=== PATIENT | male | born 1980 | race Caucasian/White ===

== ENCOUNTER 2019-07-21 17:57 | Emergency (ER) | payer OTHER, SELFPAY ==
[2019-07-21 17:59] VITALS: BP 137/82; PULSE 109; RESP 16; TEMP 37; O2SAT 98; BMI 32.5
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
[2019-07-21] MEDS: ketorolac 60 mg/2 mL INJ IM (19:08)
[2019-07-21] MEDS: tetanus-diphtheria tox (adult) 0.5 mL SDV IM (19:09)
[2019-07-21 20:28] VITALS: BP 148/92; PULSE 95; RESP 18; O2SAT 98
[2019-07-21 21:44] LABS: Hepatitis B Surface AB. 14.5 (0-8.5)
[2019-07-21 21:59] LABS: HIV 1 & 2 Antibody Non-Reactive (Non-Reactiv); HIV 1 & 2 Antigen Non-Reactive (Non-Reactiv)
[2019-07-21 22:27] LABS: Hepatitis C Virus Antibody Non-Reactive (Nonreactive)
== END 2019-07-21 20:31 | disposition home or self-care (01) ==
PROVIDERS: Emergency Provider Nurse Practitioner Family; Family Provider Nurse Practitioner Family
DX: S51.851A Open bite of right forearm, initial encounter (principal); W50.3XXA Accidental bite by another person, initial encounter; Y92.238 Other place in hospital as the place of occurrence of the external cause; Y99.0 Civilian activity done for income or pay; Z23 Encounter for immunization
CPT/HCPCS: 86706; 86803; 87340; 90471; 90472; 90714; 96372; 99281; J1885

== ENCOUNTER 2019-07-22 21:48 | Emergency (ER) | payer OTHER, SELFPAY ==
[2019-07-22 21:58] VITALS: PULSE 87; RESP 16; TEMP 36.4; O2SAT 98; BMI 34.4
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
[2019-07-22] MEDS: amoxicillin-clav 875-125 mg Tablet 1 TAB PO (22:07)
[2019-07-22 22:15] VITALS: PULSE 84; RESP 16; TEMP 36.4; O2SAT 98
== END 2019-07-22 22:16 | disposition home or self-care (01) ==
LOC: ER 23:36
PROVIDERS: Emergency Provider Emergency Medicine; Family Provider Nurse Practitioner Family
DX: S51.851A Open bite of right forearm, initial encounter (principal); W50.3XXA Accidental bite by another person, initial encounter; Y92.239 Unspecified place in hospital as the place of occurrence of the external cause; Y99.0 Civilian activity done for income or pay
CPT/HCPCS: 99281

== ENCOUNTER → 2020-01-17 11:21 | Outpatient (BNVA) | payer OTHER, SELFPAY | PROVIDERS: Family Provider Nurse Practitioner Family; Visit Provider Orthopaedic Surgery | DX: R52 Pain, unspecified (principal) | CPT/HCPCS: 73030 ==

== ENCOUNTER 2020-01-17 14:21 | Outpatient (CLI) | payer OTHER, SELFPAY ==
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
== END 2020-01-17 14:22 | disposition home or self-care (01) ==
LOC: RADWPI 14:24
PROVIDERS: Family Provider Family Medicine; PCP Family Medicine; Visit Provider Orthopaedic Surgery
DX: S46.211A Strain of muscle, fascia and tendon of other parts of biceps, right arm, initial encounter (principal); X58.XXXA Exposure to other specified factors, initial encounter
CPT/HCPCS: 73221

== ENCOUNTER 2020-02-24 07:09 | Outpatient (RCR) | payer OTHER, SELFPAY | END 2020-03-13 23:59 | disposition home or self-care (01) | LOC: SPT 07:09 | PROVIDERS: PCP Family Medicine; Referring Provider Orthopaedic Surgery; Visit Provider Orthopaedic Surgery | DX: M25.511 Pain in right shoulder (principal) | CPT/HCPCS: 97110; 97162; G0283 ==

== ENCOUNTER 2020-03-10 16:31 | Inpatient (IN) | payer OTHER, SELFPAY ==
[2020-03-10] VITALS (10 sets, daily range): BP systolic 123–145; BP diastolic 68–97; PULSE 73–122; RESP 15–29; TEMP 36.6–37.1; O2SAT 93–98; BMI 35.2
--- NOTE | 2020-03-10 16:40 | XRR_ITS ---
PROCEDURE INFORMATION: Exam: XR Chest, 1 View Exam date and time: 03/10/2020 5:14 PM Age: 39 years old Clinical indication: Shortness of breath; Additional info: Dyspnea/cough TECHNIQUE: Imaging protocol: XR of the chest Views: 1 view. COMPARISON: No relevant prior studies available. FINDINGS: Lungs: Unremarkable. No consolidation. Pleural space: Unremarkable. No pleural effusion. No pneumothorax. Heart/Mediastinum: Unremarkable. No cardiomegaly. Bones/joints: Unremarkable. XR/XR chest 1V portable [id number] IMPRESSION: No acute findings.
--- NOTE | 2020-03-10 16:42 | ED_ITS ---
Documented by User: Tyler Young DO 03/11/20 14:07 HPI - URI/Sore Throat General: Chief Complaint: Nausea/Vomiting/Diarrhea Stated Complaint: covid symtpoms Time Seen by Provider: 03/10/20 16:34 History of Present Illness: HPI Narrative: 39-year-old male presents emergency room via private vehicle complaining of shortness of breath extreme fatigue. He is tachycardic although his oxygen sats are mid 90s and above. He is fairly certain he was exposed to COVID. His daughter was exposed and tested positive in January. She was reexposed recently but she still within the top 3 months time window where it is thought that reinfection is not likely as the CDC is not recommend recommend retesting. Patient complains of feeling excessively short of breath rapid heart rate and feeling flushed and hot at times he is not had a ny anosmia been very nauseous but not had any diarrhea. He does feel very congestion he has a mildly productive cough. MD elicited complaint: cough, rhinorrhea and nasal congestion Onset (ago): day(s) (2) Consistency: constant and progressively worsening Severity: severe Description of mucous: clear Able to tolerate fluids by mouth: Yes Exacerbating factors: other (Exertion) Relieving factors: rest Associated symptoms: Reports chills, congestion, cough, fever(s), myalgias, nasal congestion, nausea, rhinorrhea, short of breath, stiffness and sore throat; Deny abdominal pain, chest pain, rash or vomiting Treatments prior to arrival: none Review of Systems Const: Reports: fever(s) and chills ENMT: Reports: nasal congestion Card: Denies: chest pain Resp: Denies: dyspnea, productive cough or non-productive cough GI: Reports: nausea; Denies: abdominal pain or vomiting : Denies: flank pain, dysuria, urinary frequency or urinary urgency Skin/Breast: Denies: rash or pruritus PFS ED PFSH: Medical History (Updated 03/11/20 @ 13:54 by Julián Mitchell MD) Contusion, arm, upper No pertinent past medical history Surgical History (Updated 03/11/20 @ 00:00 by Jammie Cortez MD) History of appendectomy Hx of cholecystectomy Family History (Updated 03/11/20 @ 00:00 by Jammie Cortez MD) Grandmother No problems noted. Mother Cancer Leukemia, in remission Social History (Updated 03/11/20 @ 00:01 by Jammie Cortez MD) Smoking and tobacco status: never smoked Alcohol intake: never Substance/Drug Use: never Lives independently: Yes Household members: spouse Housing: House Physical Exam Const: COMMON NORMALS: no acute distress GENERAL APPEARANCE: cooperative and comfortable ORIENTATION/CONSCIOUSNESS: Yes awake, Yes oriented to person, Yes oriented to place and Yes oriented to time HENMT: COMMON NORMALS: normocephalic, atraumatic and hearing grossly normal bilaterally HEAD & SCALP: normocephalic and atraumatic Eye: COMMON NORMALS: Equal, round and reactive pupils present, EOMs intact bilaterally, conjunctivae normal and no scleral icterus CONJUNCTIVA: Yes con junctivae normal PUPIL: Yes Equal, round and reactive pupils present Neck/C-Spine: COMMON NORMALS: no JVD Resp: COMMON NORMALS: normal respiratory effort, No retractions, No use of accessory muscles and clear to auscultation bilaterally AUSCULTATION: clear to auscultation bilaterally Cardio: COMMON NORMALS: no JVD, regular rate, regular rhythm and No murmurs present (Cardio) RATE: regular rate RHYTHM: regular rhythm GI: COMMON NORMALS: Soft to palpation and No hepatosplenomegaly present AUSCULTATION: Yes normoactive bowel sounds PALPATION: Yes Soft to palpation, No Tenderness to palpation present (GI), No Guarding due to palpation present (GI) and Yes No hepatosplenomegaly present Extremity: COMMON NORMALS: normal to inspection, capillary refill normal, no clubbing, cyanosis or edema, no calf tenderness and no pedal edema Neuro: SENSORIUM/ORIENTATION: Yes oriented to person, Yes oriented to place and Yes oriented to time Skin: COMMON NORMALS: no rashes or lesions noted GENERAL SKIN EXAM: no rashes or lesions noted Course Vital Signs: Vital signs: Vital Signs Temperature 99.0 F 03/11/20 12:24 Pulse Rate 94 03/11/20 12:24 Respiratory Rate 18 03/11/20 12:24 Blood Pressure 119/69 03/11/20 12:24 Pulse Oximetry 98 03/11/20 12:24 MDM - URI/Sore Throat MDM Narrative: Medical decision making narrative: Care turned over to Dr. Koch at change of shift see his notes for final diagnosis and disposition Lab Data: Labs: Lab Results 03/10/20 03/10/20 03/10/20 Range/Units 12:20 16:51 16:51 WBC 18.0 H (4.0-10.0) 10^3/ uL RBC 5.71 H (4.1-5.3) 10^6/u L Hgb 16.6 (11.7-16.6) g/dL Hct 48.6 (42.0-52.0) % MCV 85.1 (80-94) fL MCH 29.1 (28.0-34.0) pg MCHC 34.2 (30.0-36.0) g/dL RDW 11.9 L (12.1-15.1) % Plt Count 296 (130-400) 10^3/c mm MPV 10.4 (7.4-10.4) fL Neut % (Auto) 82.5 % Lymph % (Auto) 10.8 % Clayton % (Auto) 5.8 % Eos % (Auto) 0.4 % Baso % (Auto) 0.1 % Neut # (Auto) 14.89 H (1.8-7.7) 10^3/u L Lymph # (Auto) 1.9 (0.8-4.8) 10^3/u L Clayton # (Auto) 1.0 H (0.2-0.9) 10^3/u L Eos # (Auto) 0.1 (0.0-0.8) 10^3/u L Baso # (Auto) 0.0 (0.0-0.1) 10^3/u L Nucleated RBC % (a uto) 0 % Nucleated RBCs # 0.0 /100WBC Fibrinogen (174-498) mg/dL Sodium 138 (136-145) mmol/L Potassium 3.9 (3.5-5.1) mmol/L Chloride 100 (98-107) mmol/L Carbon Dioxide 22 (22-29) mmol/L Anion Gap 19.9 H (5-19) BUN 15 (6-20) mg/dL Creatinine 1.1 (0.7-1.2) mg/dL GFR Calculation 74.9 L (90-130) mL/min Glucose 127 H (65-115) mg/dL Calculated Osmolal ity 284 L (285-295) mOsm/k g Lactic Acid (0.5-2.2) mmol/L Calcium 9.6 (8.5-10.5) mg/dL Ferritin (30-400) ng/mL Total Bilirubin 1.1 (0.15-1.2) mg/dL AST 20 (0-40) U/L ALT 16 (0-41) U/L Alkaline Phosphata se 89 (40-130) IU/L Lactate Dehydrogen ase (135-225) U/L C-Reactive Protein (0.0-4.9) mg/L Total Protein 8.3 (6.6-8.7) g/dL Albumin 5.1 (3.5-5.2) g/dL Globulin 3.2 (1.3-4.6) g/dL Procalcitonin (0-0.5) ng/mL Urine Color (Yellow) Urine Appearance (CLEAR) Urine pH (5-7) Ur Specific Gravit y (1.005-1.030) Urine Protein (Negative) Urine Glucose (UA) (Normal) Urine Ketones (Negative) Urine Blood (Negative) Urine Nitrate (Negative) Urine Bilirubin (NEGATIVE) Urine Urobilinogen (Negative) mg/dL Ur Leukocyte Leanna ase (Negative) Urine RBC (0-2) /hpf Urine WBC (0-5) /hpf Ur Squamous Epith Cells (0-5) Amorphous Sediment Urine Bacteria (NONE) Urine Mucus SARS-CoV-2 Ag (Rap id) Negative (Negative) 03/10/20 03/10/20 03/10/20 Range/Units 16:51 16:51 16:51 WBC (4.0-10.0) 10^3/ uL RBC (4.1-5.3) 10^6/u L Hgb (11.7-16.6) g/dL Hct (42.0-52.0) % MCV (80-94) fL MCH (28.0-34.0) pg MCHC (30.0-36.0) g/dL RDW (12.1-15.1) % Plt Count (130-400) 10^3/c mm MPV (7.4-10.4) fL Neut % (Auto) % Lymph % (Auto) % Clayton % (Auto) % Eos % (Auto) % Baso % (Auto) % Neut # (Auto) (1.8-7.7) 10^3/u L Lymph # (Auto) (0.8-4.8) 10^3/u L Clayton # (Auto) (0.2-0.9) 10^3/u L Eos # (Auto) (0.0-0.8) 10^3/u L Baso # (Auto) (0.0-0.1) 10^3/u L Nucleated RBC % (a uto) % Nucleated RBCs # /100WBC Fibrinogen 359 (174-498) mg/dL Sodium (136-145) mmol/L Potassium (3.5-5.1) mmol/L Chloride (98-107) mmol/L Carbon Dioxide (22-29) mmol/L Anion Gap (5-19) BUN (6-20) mg/dL Creatinine (0.7-1.2) mg/dL GFR Calculation (90-130) mL/min Glucose (65-115) mg/dL Calculated Osmolal ity (285-295) mOsm/k g Lactic Acid 1.5 (0.5-2.2) mmol/L Calcium (8.5-10.5) mg/dL Ferritin 321 (30-400) ng/mL Total Bilirubin (0.15-1.2) mg/dL AST (0-40) U/L ALT (0-41) U/L Alkaline Phosphata se (40-130) IU/L Lactate Dehydrogen ase 166 (135-225) U/L C-Reactive Protein 5.6 H (0.0-4.9) mg/L Total Protein (6.6-8.7) g/dL Albumin (3.5-5.2) g/dL Globulin (1.3-4.6) g/dL Procalcitonin 0.05 (0-0.5) ng/mL Urine Color (Yellow) Urine Appearance (CLEAR) Urine pH (5-7) Ur Specific Gravit y (1.005-1.030) Urine Protein (Negative) Urine Glucose (UA) (Normal) Urine Ketones (Negative) Urine Blood (Negative) Urine Nitrate (Negative) Urine Bilirubin (NEGATIVE) Urine Urobilinogen (Negative) mg/dL Ur Leukocyte Leanna ase (Negative) Urine RBC (0-2) /hpf Urine WBC (0-5) /hpf Ur Squamous Epith Cells (0-5) Amorphous Sediment Urine Bacteria (NONE) Urine Mucus SARS-CoV-2 Ag (Rap id) (Negative) 03/10/20 Range/Units 20:38 WBC (4.0-10.0) 10^3/ uL RBC (4.1-5.3) 10^6/u L Hgb (11.7-16.6) g/dL Hct (42.0-52.0) % MCV (80-94) fL MCH (28.0-34.0) pg MCHC (30.0-36.0) g/dL RDW (12.1-15.1) % Plt Count (130-400) 10^3/c mm MPV (7.4-10.4) fL Neut % (Auto) % Lymph % (Auto) % Clayton % (Auto) % Eos % (Auto) % Baso % (Auto) % Neut # (Auto) (1.8-7.7) 10^3/u L Lymph # (Auto) (0.8-4.8) 10^3/u L Clayton # (Auto) (0.2-0.9) 10^3/u L Eos # (Auto) (0.0-0.8) 10^3/u L Baso # (Auto) (0.0-0.1) 10^3/u L Nucleated RBC % (a uto) % Nucleated RBCs # /100WBC Fibrinogen (174-498) mg/dL Sodium (136-145) mmol/L Potassium (3.5-5.1) mmol/L Chloride (98-107) mmol/L Carbon Dioxide (22-29) mmol/L Anion Gap (5-19) BUN (6-20) mg/dL Creatinine (0.7-1.2) mg/dL GFR Calculation (90-130) mL/min Glucose (65-115) mg/dL Calculated Osmolal ity (285-295) mOsm/k g Lactic Acid (0.5-2.2) mmol/L Calcium (8.5-10.5) mg/dL Ferritin (30-400) ng/mL Total Bilirubin (0.15-1.2) mg/dL AST (0-40) U/L ALT (0-41) U/L Alkaline Phosphata se (40-130) IU/L Lactate Dehydrogen ase (135-225) U/L C-Reactive Protein (0.0-4.9) mg/L Total Protein (6.6-8.7) g/dL Albumin (3.5-5.2) g/dL Globulin (1.3-4.6) g/dL Procalcitonin (0-0.5) ng/mL Urine Color Yellow (Yellow) Urine Appearance Clear (CLEAR) Urine pH 6.5 (5-7) Ur Specific Gravit y 1.015 (1.005-1.030) Urine Protein Trace (Negative) Urine Glucose (UA) Norm (Normal) Urine Ketones 3+ H (Negative) Urine Blood Neg (Negative) Urine Nitrate Negative (Negative) Urine Bilirubin Neg (NEGATIVE) Urine Urobilinogen 1 H (Negative) mg/dL Ur Leukocyte Leanna ase Negative (Negative) Urine RBC 0-4 H (0-2) /hpf Urine WBC 0-4 H (0-5) /hpf Ur Squamous Epith Cells 0-4 H (0-5) Amorphous Sediment Not Reportable Urine Bacteria Trace (NONE) Urine Mucus 3+ SARS-CoV-2 Ag (Rap id) (Negative) Discharge Plan Discharge Patient Disposition: Placed in Observation Admit Provider: Jammie Cortez Clinical Impression: Gastroenteritis, Dehydration Intractable vomiting Qualifiers: Vomiting type: unspecified Nausea presence: with nausea Qualified Code(s): R11.2 - Nausea with vomiting, unspecified Condition: Stable Discharge Date/Time: 03/11/20 00:01 Coding Level of Care Code ED Food Science Professor for g Fwd Exam Comprehensive Documented by User: Ned Koch DO 03/11/20 02:52 HPI - URI/Sore Throat General: Chief Complaint: Nausea/Vomiting/Diarrhea Stated Complaint: covid symtpoms Time Seen by Provider: 03/10/20 16:34 PFSH ED PFSH: Medical History (Updated 03/11/20 @ 13:54 by Julián Mitchell MD) Contusion, arm, upper No pertinent past medical history Surgical History (Updated 03/11/20 @ 00:00 by Jammie Cortez MD) History of appendectomy Hx of cholecystectomy Family History (Updated 03/11/20 @ 00:00 by Jammie Cortez MD) Grandmother No problems noted. Mother Cancer Leukemia, in remission Social History (Updated 03/11/20 @ 00:01 by Jammie Cortez MD) Smoking and tobacco status: never smoked Alcohol intake: never Substance/Drug Use: never Lives independently: Yes Household members: spouse Housing: House Course Consultations: Consultation #1: candido Vital Signs: Vital signs: Vital Signs Temperature 99.0 F 03/11/20 12:24 Pulse Rate 94 03/11/20 12:24 Respiratory Rate 18 03/11/20 12:24 Blood Pressure 119/69 03/11/20 12:24 Pulse Oximetry 98 03/11/20 12:24 MDM - URI/Sore Throat MDM Narrative: Medical decision making narrative: 39-year-old male presenting with some cough, shortness of breath, and vomiting. He states that he is vomited most of liquid he is taken in over the last 24 hours up. He is checked out to me by Dr. Young at shift change. He is tachycardic in the 130s on arrival. He is short of breath he has a headache, some generalized belly discomfort, and chest tightness. His white blood cell count 18 his electrolytes are normal. Hemoglobin 16.6. His chest x-ray is negative. CTA of the chest is also negative he is had 2 L of fluid, his heart rate is now in the 90s with a normal blood pressure. Given his extensive resuscitation here, to get him to this point, his continued symptoms, believe he should be observed. Hospitalist agrees. Lab Data: Labs: Lab Results 03/10/20 03/10/20 03/10/20 Range/Units 12:20 16:51 16:51 WBC 18.0 H (4.0-10.0) 10^3/ uL RBC 5.71 H (4.1-5.3) 10^6/u L Hgb 16.6 (11.7-16.6) g/dL Hct 48.6 (42.0-52.0) % MCV 85.1 (80-94) fL MCH 29.1 (28.0-34.0) pg MCHC 34.2 (30.0-36.0) g/dL RDW 11.9 L (12.1-15.1) % Plt Count 296 (130-400) 10^3/c mm MPV 10.4 (7.4-10.4) fL Neut % (Auto) 82.5 % Lymph % (Auto) 10.8 % Clayton % (Auto) 5.8 % Eos % (Auto) 0.4 % Baso % (Auto) 0.1 % Neut # (Auto) 14.89 H (1.8-7.7) 10^3/u L Lymph # (Auto) 1.9 (0.8-4.8) 10^3/u L Clayton # (Auto) 1.0 H (0.2-0.9) 10^3/u L Eos # (Auto) 0.1 (0.0-0.8) 10^3/u L Baso # (Auto) 0.0 (0.0-0.1) 10^3/u L Nucleated RBC % (a uto) 0 % Nucleated RBCs # 0.0 /100WBC Fibrinogen (174-498) mg/dL Sodium 138 (136-145) mmol/L Potassium 3.9 (3.5-5.1) mmol/L Chloride 100 (98-107) mmol/L Carbon Dioxide 22 (22-29) mmol/L Anion Gap 19.9 H (5-19) BUN 15 (6-20) mg/dL Creatinine 1.1 (0.7-1.2) mg/dL GFR Calculation 74.9 L (90-130) mL/min Glucose 127 H (65-115) mg/dL Calculated Osmolal ity 284 L (285-295) mOsm/k g Lactic Acid (0.5-2.2) mmol/L Calcium 9.6 (8.5-10.5) mg/dL Ferritin (30-400) ng/mL Total Bilirubin 1.1 (0.15-1.2) mg/dL AST 20 (0-40) U/L ALT 16 (0-41) U/L Alkaline Phosphata se 89 (40-130) IU/L Lactate Dehydrogen ase (135-225) U/L C-Reactive Protein (0.0-4.9) mg/L Total Protein 8.3 (6.6-8.7) g/dL Albumin 5.1 (3.5-5.2) g/dL Globulin 3.2 (1.3-4.6) g/dL Procalcitonin (0-0.5) ng/mL Urine Color (Yellow) Urine Appearance (CLEAR) Urine pH (5-7) Ur Specific Gravit y (1.005-1.030) Urine Protein (Negative) Urine Glucose (UA) (Normal) Urine Ketones (Negative) Urine Blood (Negative) Urine Nitrate (Negative) Urine Bilirubin (NEGATIVE) Urine Urobilinogen (Negative) mg/dL Ur Leukocyte Leanna ase (Negative) Urine RBC (0-2) /hpf Urine WBC (0-5) /hpf Ur Squamous Epith Cells (0-5) Amorphous Sediment Urine Bacteria (NONE) Urine Mucus SARS-CoV-2 Ag (Rap id) Negative (Negative) 03/10/20 03/10/20 03/10/20 Range/Units 16:51 16:51 16:51 WBC (4.0-10.0) 10^3/ uL RBC (4.1-5.3) 10^6/u L Hgb (11.7-16.6) g/dL Hct (42.0-52.0) % MCV (80-94) fL MCH (28.0-34.0) pg MCHC (30.0-36.0) g/dL RDW (12.1-15.1) % Plt Count (130-400) 10^3/c mm MPV (7.4-10.4) fL Neut % (Auto) % Lymph % (Auto) % Clayton % (Auto) % Eos % (Auto) % Baso % (Auto) % Neut # (Auto) (1.8-7.7) 10^3/u L Lymph # (Auto) (0.8-4.8) 10^3/u L Clayton # (Auto) (0.2-0.9) 10^3/u L Eos # (Auto) (0.0-0.8) 10^3/u L Baso # (Auto) (0.0-0.1) 10^3/u L Nucleated RBC % (a uto) % Nucleated RBCs # /100WBC Fibrinogen 359 (174-498) mg/dL Sodium (136-145) mmol/L Potassium (3.5-5.1) mmol/L Chloride (98-107) mmol/L Carbon Dioxide (22-29) mmol/L Anion Gap (5-19) BUN (6-20) mg/dL Creatinine (0.7-1.2) mg/dL GFR Calculation (90-130) mL/min Glucose (65-115) mg/dL Calculated Osmolal ity (285-295) mOsm/k g Lactic Acid 1.5 (0.5-2.2) mmol/L Calcium (8.5-10.5) mg/dL Ferritin 321 (30-400) ng/mL Total Bilirubin (0.15-1.2) mg/dL AST (0-40) U/L ALT (0-41) U/L Alkaline Phosphata se (40-130) IU/L Lactate Dehydrogen ase 166 (135-225) U/L C-Reactive Protein 5.6 H (0.0-4.9) mg/L Total Protein (6.6-8.7) g/dL Albumin (3.5-5.2) g/dL Globulin (1.3-4.6) g/dL Procalcitonin 0.05 (0-0.5) ng/mL Urine Color (Yellow) Urine Appearance (CLEAR) Urine pH (5-7) Ur Specific Gravit y (1.005-1.030) Urine Protein (Negative) Urine Glucose (UA) (Normal) Urine Ketones (Negative) Urine Blood (Negative) Urine Nitrate (Negative) Urine Bilirubin (NEGATIVE) Urine Urobilinogen (Negative) mg/dL Ur Leukocyte Leanna ase (Negative) Urine RBC (0-2) /hpf Urine WBC (0-5) /hpf Ur Squamous Epith Cells (0-5) Amorphous Sediment Urine Bacteria (NONE) Urine Mucus SARS-CoV-2 Ag (Rap id) (Negative) 03/10/20 Range/Units 20:38 WBC (4.0-10.0) 10^3/ uL RBC (4.1-5.3) 10^6/u L Hgb (11.7-16.6) g/dL Hct (42.0-52.0) % MCV (80-94) fL MCH (28.0-34.0) pg MCHC (30.0-36.0) g/dL RDW (12.1-15.1) % Plt Count (130-400) 10^3/c mm MPV (7.4-10.4) fL Neut % (Auto) % Lymph % (Auto) % Clayton % (Auto) % Eos % (Auto) % Baso % (Auto) % Neut # (Auto) (1.8-7.7) 10^3/u L Lymph # (Auto) (0.8-4.8) 10^3/u L Clayton # (Auto) (0.2-0.9) 10^3/u L Eos # (Auto) (0.0-0.8) 10^3/u L Baso # (Auto) (0.0-0.1) 10^3/u L Nucleated RBC % (a uto) % Nucleated RBCs # /100WBC Fibrinogen (174-498) mg/dL Sodium (136-145) mmol/L Potassium (3.5-5.1) mmol/L Chloride (98-107) mmol/L Carbon Dioxide (22-29) mmol/L Anion Gap (5-19) BUN (6-20) mg/dL Creatinine (0.7-1.2) mg/dL GFR Calculation (90-130) mL/min Glucose (65-115) mg/dL Calculated Osmolal ity (285-295) mOsm/k g Lactic Acid (0.5-2.2) mmol/L Calcium (8.5-10.5) mg/dL Ferritin (30-400) ng/mL Total Bilirubin (0.15-1.2) mg/dL AST (0-40) U/L ALT (0-41) U/L Alkaline Phosphata se (40-130) IU/L Lactate Dehydrogen ase (135-225) U/L C-Reactive Protein (0.0-4.9) mg/L Total Protein (6.6-8.7) g/dL Albumin (3.5-5.2) g/dL Globulin (1.3-4.6) g/dL Procalcitonin (0-0.5) ng/mL Urine Color Yellow (Yellow) Urine Appearance Clear (CLEAR) Urine pH 6.5 (5-7) Ur Specific Gravit y 1.015 (1.005-1.030) Urine Protein Trace (Negative) Urine Glucose (UA) Norm (Normal) Urine Ketones 3+ H (Negative) Urine Blood Neg (Negative) Urine Nitrate Negative (Negative) Urine Bilirubin Neg (NEGATIVE) Urine Urobilinogen 1 H (Negative) mg/dL Ur Leukocyte Leanna ase Negative (Negative) Urine RBC 0-4 H (0-2) /hpf Urine WBC 0-4 H (0-5) /hpf Ur Squamous Epith Cells 0-4 H (0-5) Amorphous Sediment Not Reportable Urine Bacteria Trace (NONE) Urine Mucus 3+ SARS-CoV-2 Ag (Rap id) (Negative) Discharge Plan Discharge Patient Disposition: Placed in Observation Admit Provider: Jammie Cortez Clinical Impression: Gastroenteritis, Dehydration Intractable vomiting Qualifiers: Vomiting type: unspecified Nausea presence: with nausea Qualified Code(s): R11.2 - Nausea with vomiting, unspecified Condition: Stable Discharge Date/Time: 03/11/20 00:01 Coding Level of Care Code ED Food Science Professor for [facility] Fwd Exam Comprehensive
[2020-03-10 17:00] LABS: Basophils % 0.1 %; Eosinophils # 0.1 10^3/uL (0.0-0.8); Eosinophils % 0.4 %; Hematocrit 48.6 % (42.0-52.0); Hemoglobin 16.6 g/dL (11.7-16.6); Lymphocytes # 1.9 10^3/uL (0.8-4.8); Lymphocytes % 10.8 %; Mean Corpuscular HGB Conc 34.2 g/dL (30.0-36.0); Mean Corpuscular Hemoglobin 29.1 pg (28.0-34.0); Mean Corpuscular Volume 85.1 fL (80-94); Mean Platelet Volume 10.4 fL (7.4-10.4); Monocytes % 5.8 %; Neutrophils # 14.89 10^3/uL (1.8-7.7); Neutrophils % 82.5 %; Nucleated Red Blood Cells % 0 %; Platelet Count 296 10^3/cmm (130-400); Red Blood Count 5.71 10^6/uL (4.1-5.3); Red Cell Distribution Width 11.9 % (12.1-15.1)
[2020-03-10 17:17] LABS: Alanine Aminotransferase 16 U/L (0-41); Albumin Level 5.1 g/dL (3.5-5.2); Alkaline Phosphatase 89 IU/L (40-130); Anion Gap 19.9 (5-19); Aspartate Amino Transferase 20 U/L (0-40); Blood Urea Nitrogen 15 mg/dL (6-20); Calcium 9.6 mg/dL (8.5-10.5); Carbon Dioxide 22 mmol/L (22-29); Chloride 100 mmol/L (98-107); Globulin 3.2 g/dL (1.3-4.6); Glomerular Filtration Rate 74.9 mL/min (90-130); Glucose 127 mg/dL (65-115); Osmolality Calculated 284 mOsm/kg (285-295); Potassium 3.9 mmol/L (3.5-5.1); Sodium 138 mmol/L (136-145); Total Bilirubin 1.1 mg/dL (0.15-1.2); Total Protein 8.3 g/dL (6.6-8.7)
[2020-03-10 17:41] LABS: Lactic Sepsis W/Reflex 1.5 mmol/L (0.5-2.2); Procalcitonin 0.05 ng/mL (0-0.5)
[2020-03-10 17:42] LABS: SARS Covid-2 Antigen Negative (Negative)
--- NOTE | 2020-03-10 17:46 | CTR_ITS ---
PROCEDURE INFORMATION: Exam: CT Angiography Chest With Contrast Exam date and time: 03/10/2020 6:26 PM Age: 39 years old Clinical indication: Shortness of breath; Patient HX: C/O SOB and fatigue; Additional info: Dyspnea TECHNIQUE: Imaging protocol: Computed tomographic angiography of the chest with intravenous contrast. 3D rendering (Not supervised by radiologist): MIP and/or 3D reconstructed images were created by the technologist. Radiation optimization: All CT scans at this facility use at least one of these dose optimization techniques: automated exposure control; mA and/or kV adjustment per patient size (includes targeted exams where dose is matched to clinical indication); or iterative reconstruction. Contrast material: OMNI 350; Contrast volume: 95 ml; Contrast route: INTRAVENOUS (IV); COMPARISON: CR XR chest 1V portable [id number] 03/10/2020 5:01 PM RADIATION DOSE METRICS: Total DLP (mGy-cm): 597.74 FINDINGS: Pulmonary arteries: Normal. No pulmonary emboli. Aorta: Unremarkable. No aortic aneurysm. No aortic dissection. Lungs: Unremarkable. No consolidation. No masses. Pleural space: Unremarkable. No pneumothorax. No pleural effusion. Heart: Unremarkable. No cardiomegaly. No pericardial effusion. Lymph nodes: Unremarkable. No enlarged lymph nodes. Gallbladder and bile ducts: The gallbladder is not visualized. The bile ducts are normal. Bones/joints: Unremarkable. No acute fracture. Soft tissues: Unremarkable. CT/CT angio chest PE protcl [id number] IMPRESSION: 1. No evidence for pulmonary embolus or acute abnormality. Radiation Dose CTDIVOL = (mGy): DLP = 597.74 (mGy-cm)
[2020-03-10 17:52] LABS: C Reactive Protein 5.6 mg/L (0.0-4.9); Ferritin 321 ng/mL (30-400); Lactate Dehydrogenase 166 U/L (135-225)
[2020-03-10 17:53] LABS: Fibrinogen 359 mg/dL (174-498)
--- NOTE | 2020-03-10 18:46 | PC.NURSE ---
pt transported to CT by stretcher
[2020-03-10] MEDS: sodium chloride 0.9% 1,000 ML 999 ML IV ×2 (18:54→21:37)
[2020-03-10] MEDS: ondansetron 2 mg/ML SDV 2 mL 4 MG IVP (18:55)
[2020-03-10] MEDS: iohexol 350 mg/mL 100 mL Btl IV (18:55)
[2020-03-10] MEDS: fentaNYL 50 mcg/mL INJ 2mL 100 MCG IVP (18:55)
--- NOTE | 2020-03-10 19:11 | PC.NURSE ---
patient report received from [facility] and care transferred to [facility]
[2020-03-10] MEDS: metoprolol tartrate 1 mg/1 mL SDV 5 mL 5 MG IV (19:52)
[2020-03-10] MEDS: dexamethasone 4 mg/mL INJ 8 MG IVP (19:52)
[2020-03-10 21:19] LABS: Bilirubin Urine Neg (NEGATIVE); Blood Urine Neg (Negative); Glucose Urine UA Norm (Normal); Ketones Urine 3+ (Negative); Leukocyte Esterase Urine Negative (Negative); Nitrate Urine Negative (Negative); Protein Urine Trace (Negative); Specific Gravity, Urine 1.015 (1.005-1.030); Urine Appearance Clear (CLEAR); Urine Color Yellow (Yellow); Urobilinogen Urine 1 mg/dL (Negative); pH Urine 6.5 (5-7)
[2020-03-10 21:20] LABS: Add Urine Culture? No; Bacteria Urine TRACE; Mucus Urine 3+; RBC Urine 0-4 /hpf (0-2); Squamous Epithelial Cell Urine 0-4 (0-5); WBC Urine 0-4 /hpf (0-5)
[2020-03-10] MEDS: fentaNYL 50 mcg/mL INJ 2mL IVP (21:35)
[2020-03-10] MEDS: ketorolac 30 mg/mL INJ IVP (21:36)
--- NOTE | 2020-03-10 22:57 | PM.HP ---
Providers/Chief Complaint Primary Care Provider: Srinath Castellon MD Chief Complaint: covid symtpoms History of Present Illness Abebe Simeon is a 39 year old male who does not carry significant past medical history, has history of laparotomy, appendectomy, cholecystectomy came in with chief complaint of intractable nausea and vomiting. Abebe works at [employer], he is stating that his symptoms started 48 hours ago, he had pizza with his family, next day he started experiencing intractable nausea and vomiting without any episodes of diarrhea, fever, blood in stool, hemoptysis. He has had more than 15 episodes of vomiting. He was worried about faith COVID-19 because of exposure to her daughter who is positive. Is denying chest pain, orthopnea, PND, he is a non-smoker, nonalcoholic. His last bowel movement was yesterday. Is denying excruciating abdominal pain. He is denying recent camping, traveling or similar symptoms in his family members. Diagnosis in the ER revealed dehydration, leukocytosis, for intractable nausea and vomiting hospital service was requested to resuscitate him with fluid overnight along antiemetics. Considering history of laparotomy I have requested CT abdomen to rule out obstruction. Currently his heart rate is ranging between 99-100, clinically he is fluid overloaded, no signs of peritonitis or severe abdominal pain COVID antigen negative Review of Systems Const: Reports: body aches and fatigue; Denies: fever(s), chills or change in appetite Eyes: Denies: change in vision ENMT: Denies: throat pain Card: Reports: palpitations; Denies: chest pain, dyspnea on exertion or orthopnea Resp: Denies: dyspnea GI: Reports: abdominal pain, nausea, vomiting and heartburn : Denies: flank pain Musc: Denies: neck pain Skin/Breast: Denies: rash Neuro: Denies: headache(s) Psych: Denies: anxiety or depression Endo: Denies: polyuria Parminder/Lymph: Denies: easy bruising All/Imm: Denies: urticaria Medications/Allergies Home Medications Medication Instructions Recorded Confirmed Last Taken Type No Known Home Medications 01/17/20 03/10/20 Unknown History Allergies Allergy/AdvReac Type Severity Reaction Status Date / Time No Known Allergies Allergy Verified 02/15/20 14:47 PFSH Acute PFSH: Medical History (Updated 03/11/20 @ 00:00 by Jammie Cortez MD) Contusion, arm, upper No pertinent past medical history Surgical History (Updated 03/11/20 @ 00:00 by Jammie Cortez MD) History of appendectomy Hx of cholecystectomy Family History (Updated 03/11/20 @ 00:00 by Jammie Cortez MD) Grandmother No problems noted. Mother Cancer Leukemia, in remission Social History (Updated 03/11/20 @ 00:01 by Jammie Cortez MD) Smoking and tobacco status: never smoked Alcohol intake: never Substance/Drug Use: never Lives independently: Yes Household members: spouse Housing: House Vitals/I&O/Wt Last Vital Signs Temp 98.8 F 03/10/20 20:47 Pulse 96 03/10/20 22:31 Resp 27 H 03/10/20 22:31 BP 125/76 03/10/20 22:31 Pulse Ox 94 03/10/20 22:31 03/10/20 03/10/20 03/10/20 06:59 14:59 22:59 Intake Total 1000 / 1000 Balance 1000 / 1000 Weight last 48 hrs Weight 102.058 kg Physical Exam Narrative: EXAM NARRATIVE: Young male currently laying in distress in right lateral position Saturating well, tachycardic Clinically dehydrated Hoarseness of voice, Abdomen soft, distended, bowel sound present, visceral obesity, No signs of peritonitis, bowel sound present in all quadrants S1, S2, sinus tachycardia no signs of heart failure Bilateral breath sounds without adventitious sounds Neurologically nonfocal exam, EOMI, PERRLA Lower extremities without any signs of ischemia gangrene ulcer Appropriate mood and affect Dry buccal mucous membrane Data : 03/10/20 16:51 03/10/20 16:51 Micro: Microbiology 03/10/20 16:51 Blood Culture - Preliminary Blood SPECIMEN COLLECTED 03/10/20 16:51 Blood Culture - Preliminary Blood SPECIMEN COLLECTED A&P Assessment and plan (1) Intractable vomiting: Status: Acute (2) Dehydration: Status: Acute (3) Gastroenteritis: Status: Acute Additional A&P Information InTractable nausea vomiting secondary to gastroenteritis Symptoms started after eating pizza 48 hours ago Patient is afebrile, no bleeding per rectum, mildly high CRP, procalcitonin unremarkable, CTA negative for PE No need of antibiotics, hydrate with IV fluids Zofran antiemetic regimen Clinically dehydrated, rule out SBO, CT abdomen pelvis with IV contrast COVID antigen negative Leukocytosis secondary to stress-induced response, no signs of sepsis Anticipating improvement with resuscitation We will follow-up with CT abdomen No active source of infection identified Full code DVT prophylaxis: Lovenox GI prophylaxis, Protonix IV Advance diet as tolerated Attestations Medical Necessity Statement*: Anticipating discharge in less than 48 hours currently need IV fluids and antiemetics for intractable nausea vomiting Time Spent in Patient Care: (>than 50% of time spent in counselling and/or direct pt care on unit). 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
--- NOTE | 2020-03-10 23:49 | CTR_ITS ---
PROCEDURE INFORMATION: Exam: CT Abdomen And Pelvis With Contrast Exam date and time: 03/10/2020 11:56 PM Age: 39 years old Clinical indication: Vomiting; Additional info: Intractable vomiting HX of laprotomy TECHNIQUE: Imaging protocol: Computed tomography of the abdomen and pelvis with intravenous contrast. Radiation optimization: All CT scans at this facility use at least one of these dose optimization techniques: automated exposure control; mA and/or kV adjustment per patient size (includes targeted exams where dose is matched to clinical indication); or iterative reconstruction. Contrast material: OMNI 300; Contrast volume: 95 ml; Contrast route: INTRAVENOUS (IV); COMPARISON: No relevant prior studies available. RADIATION DOSE METRICS: Total DLP (mGy-cm): 1293.42 FINDINGS: Lungs: There is mild basilar ground-glass opacity compatible with pneumonitis versus atelectasis. Mediastinal space: A small hiatal hernia is present. Liver: There is a diffuse decrease in hepatic parenchymal density, consistent with fatty infiltration. Gallbladder and bile ducts: There has been a cholecystectomy. There is no common bile duct dilation. Pancreas: Normal. No ductal dilation. Spleen: Normal. No splenomegaly. Adrenals: Normal. No mass. Kidneys and ureters: There is no evidence of hydronephrosis. There is no evidence of renal calcifications. Stomach and bowel: There is no evidence of intestinal perforation or obstruction. The wall of the descending colon is thickened but collapsed. This appearance may reflect lack of distention however mild colitis cannot be excluded. There is diffuse small bowel wall thickening, consistent with infectious, ischemic, or inflammatory enteritis. Appendix: A normal appendix is identified. Intraperitoneal space: Unremarkable. No free air. No significant fluid collection. Vasculature: Unremarkable.No abdominal aortic aneurysm. Lymph nodes: Unremarkable.No enlarged lymph nodes. Bladder: Unremarkable as visualized. Reproductive: Unremarkable as visualized. Bones/joints: Unremarkable. No acute fracture. Soft tissues: There is a fat-containing umbilical hernia. CT/CT abdomen pelvis w con* [id number] IMPRESSION: 1. The wall of the descending colon is thickened but collapsed. This appearance may reflect lack of distention however mild colitis cannot be excluded. 2. There is diffuse small bowel wall thickening, consistent with infectious, ischemic, or inflammatory enteritis. Radiation Dose CTDIVOL = (mGy): DLP = 1293.42 (mGy-cm)
[2020-03-11] VITALS (7 sets, daily range): BP systolic 93–157; BP diastolic 54–80; PULSE 83–100; RESP 16–20; TEMP 36.8–37.2; O2SAT 95–99
[2020-03-11] MEDS: iohexol 300 mg/mL 100 mL Btl IV ×2 (00:11→12:54)
[2020-03-11] MEDS: sodium chloride 0.9% 1,000 ML 100 ML IV ×3 (00:41→21:58)
[2020-03-11] MEDS: enoxaparin 40 mg/0.4 mL Syringe SUBCUT ×2 (00:41→23:48)
[2020-03-11 06:11] LABS: Basophils % 0.1 %; Eosinophils % 0.1 %; Hematocrit 43.3 % (42.0-52.0); Hemoglobin 14.5 g/dL (11.7-16.6); Lymphocytes # 1.3 10^3/uL (0.8-4.8); Lymphocytes % 9.8 %; Mean Corpuscular HGB Conc 33.5 g/dL (30.0-36.0); Mean Corpuscular Volume 89.5 fL (80-94); Mean Platelet Volume 10.5 fL (7.4-10.4); Monocytes # 0.5 10^3/uL (0.2-0.9); Monocytes % 3.9 %; Neutrophils # 11.29 10^3/uL (1.8-7.7); Neutrophils % 85.6 %; Nucleated Red Blood Cells % 0 %; Platelet Count 210 10^3/cmm (130-400); Red Blood Count 4.84 10^6/uL (4.1-5.3); Red Cell Distribution Width 11.9 % (12.1-15.1); White Blood Count 13.2 10^3/uL (4.0-10.0)
[2020-03-11 06:46] LABS: Anion Gap 11.4 (5-19); Blood Urea Nitrogen 15 mg/dL (6-20); Calcium 8.8 mg/dL (8.5-10.5); Carbon Dioxide 25 mmol/L (22-29); Chloride 105 mmol/L (98-107); Glomerular Filtration Rate 83.6 mL/min (90-130); Glucose 138 mg/dL (65-115); Osmolality Calculated 282 mOsm/kg (285-295); Potassium 4.4 mmol/L (3.5-5.1); Sodium 137 mmol/L (136-145)
[2020-03-11 09:24] LABS: Glucose Point of Care 106 mg/dL (70-110)
[2020-03-11] MEDS: pantoprazole 40 mg SDV IVP (09:37)
[2020-03-11] MEDS: ondansetron 2 mg/ML SDV 2 mL 4 MG IVP ×3 (09:38→21:58)
[2020-03-11] MEDS: morphine 4 mg/mL SDV 1 mL 2 MG IVP (09:39)
--- NOTE | 2020-03-11 10:24 | CTR_ITS ---
PROCEDURE INFORMATION: Exam: CT Neck With Contrast Exam date and time: 03/11/2020 12:45 PM Age: 39 years old Clinical indication: Throat pain; Additional info: Peritonislar abscess? TECHNIQUE: Imaging protocol: Computed tomography images of the neck with intravenous contrast. Radiation optimization: All CT scans at this facility use at least one of these dose optimization techniques: automated exposure control; mA and/or kV adjustment per patient size (includes targeted exams where dose is matched to clinical indication); or iterative reconstruction. Contrast material: OMNI 300; Contrast volume: 95 ml; Contrast route: INTRAVENOUS (IV); COMPARISON: CT Cervical Spine wo* [id number] 12/16/2017 8:53 PM RADIATION DOSE METRICS: Total DLP (mGy-cm): 724.27 FINDINGS: Nasopharynx: Unremarkable. Oropharynx: Unremarkable. No significant tonsillar enlargement. Hypopharynx: Unremarkable. Larynx: Unremarkable. Normal epiglottis. Retropharyngeal space: Unremarkable. Submandibular/Parotid glands: Normal. Glands are normal in size. Thyroid: Normal. No enlarged or calcified nodules. Lymph nodes: Unremarkable. No lymphadenopathy. Trachea: Visualized trachea is unremarkable. Lungs: Unremarkable as visualized. Bones/joints: Unremarkable. No acute fracture. Soft tissues: Unremarkable. No significant soft tissue swelling. CT/CT neck w con* [id number] IMPRESSION: No acute findings. Radiation Dose CTDIVOL = (mGy): DLP = 724.27 (mGy-cm)
--- NOTE | 2020-03-11 10:24 | CTR_ITS ---
PROCEDURE INFORMATION: Exam: CT Head Without Contrast Exam date and time: 03/11/2020 12:45 PM Age: 39 years old Clinical indication: Pain; Headache; Additional info: Headache, malaise TECHNIQUE: Imaging protocol: Computed tomography of the head without contrast. Radiation optimization: All CT scans at this facility use at least one of these dose optimization techniques: automated exposure control; mA and/or kV adjustment per patient size (includes targeted exams where dose is matched to clinical indication); or iterative reconstruction. COMPARISON: CT head wo con* [id number] 12/16/2017 8:50 PM RADIATION DOSE METRICS: Total DLP (mGy-cm): 751.12 FINDINGS: Brain: Normal. No hemorrhage. Unremarkable white matter. No mass effect. Ventricles: Normal. No ventriculomegaly. Bones/joints: Unremarkable. No acute fracture. Sinuses: Visualized sinuses are unremarkable. No fluid levels. Mastoid air cells: Visualized mastoid air cells are well aerated. Soft tissues: Unremarkable. CT/CT head wo con* [id number] IMPRESSION: No acute intracranial abnormality. Radiation Dose CTDIVOL = (mGy): DLP = 751.12 (mGy-cm)
[2020-03-11 10:45] LABS: Lactic Sepsis W/Reflex 1.1 mmol/L (0.5-2.2)
[2020-03-11 11:02] LABS: Monoscreen Negative (Negative)
[2020-03-11] MEDS: cefTRIAXone 1,000 MG in sodium chloride 0.9% (plus) 50 ML 100 MG IV (11:14)
[2020-03-11] MEDS: HYDROmorphone 1 mg/mL INJ 1 mL 0.5 MG IVP ×3 (11:14→22:00)
[2020-03-11 11:47] LABS: Erythrocyte Sedimentation Rate 5 mm/hr (0-10)
--- NOTE | 2020-03-11 13:52 | PM.PN ---
Subjective Subjective: Interval history: Was examined, he is complaining of a severe headache, with photophobia, has a history of migraine headaches, complaining of sore throat, generalized fatigue, malaise, nausea, diffuse abdominal pain Vitals/I&O/Wt Last Vital Signs Temp 99.0 F 03/11/20 12:24 Pulse 94 03/11/20 12:24 Resp 18 03/11/20 12:24 BP 119/69 03/11/20 12:24 Pulse Ox 98 03/11/20 12:24 03/10/20 03/11/20 03/11/20 22:59 06:59 14:59 Intake Total 1000 / 1000 1000 / 2000 1000 / 1000 Balance 1000 / 1000 1000 / 2000 1000 / 1000 Weight last 48 hrs Weight 102.058 kg Physical Exam Const: COMMON NORMALS: no acute distress and patient oriented x3 HENMT: COMMON NORMALS: normocephalic HEAD & SCALP: normocephalic Eye: COMMON NORMALS: Equal, round and reactive pupils present and EOMs intact bilaterally PUPIL: Yes Equal, round and reactive pupils present Neck/C-Spine: COMMON NORMALS: full ROM, no lymphadenopathy, no meningeal signs and no JVD Resp: COMMON NORMALS: normal respiratory effort, No retractions, No use of accessory muscles and clear to auscultation bilaterally AUSCULTATION: clear to auscultation bilaterally Cardio: COMMON NORMALS: no JVD, regular rate, regular rhythm, S1 normal heart sound present and S2 normal heart sound present RATE: regular rate RHYTHM: regular rhythm HEART SOUNDS: S1 normal heart sound present and S2 normal heart sound present GI: COMMON NORMALS: Normal to inspection, nondistended, normoactive bowel sounds present, non-tender, No hepatosplenomegaly present, no masses and no bruits PALPATION: Yes Tenderness to palpation present (GI) Details: LLQ, RLQ, LUQ and RUQ and Yes No hepatosplenomegaly present Extremity: COMMON NORMALS: capillary refill normal, no clubbing, cyanosis or edema, no calf tenderness and no pedal edema Neuro: COMMON NORMALS: patient oriented x3 MENINGEAL SIGNS: Yes no meningeal signs Psych: COMMON NORMALS: mental status grossly normal Data : 03/11/20 05:30 03/11/20 05:30 Micro: Microbiology 08/28/20 20:38 Gram Stain - Final Sputum - Expectorated Sputum 03/10/20 16:51 Blood Culture - Preliminary Blood SPECIMEN COLLECTED 03/10/20 16:51 Blood Culture - Preliminary Blood SPECIMEN COLLECTED A&P Assessment and plan (1) Intractable vomiting: -Continue IV hydration Status: Acute Qualifiers: Nausea presence: with nausea Vomiting type: unspecified Qualified Code(s): R11.2 - Nausea with vomiting, unspecified (2) Dehydration: -Continue IV hydration, monitor electrolytes Status: Acute (3) Gastroenteritis: -Continue IV hydration, Dilaudid for pain, Zofran for nausea -Inflammatory markers within normal limits -CT scan of the abdomen shows diffuse small bowel thickening, infectious versus inflammatory versus ischemic -Inflammatory markers within normal limits, lactic acid within normal limits -We will obtain stool studies, Status: Acute (4) Sore throat: -Given sore throat, I was not able to examine the back of the throat, voice sounds hoarse, difficulty opening the mouth, minimal trismus -Start Rocephin for strep throat, will do CT of the neck to rule out peritonsillar abscess Status: Acute (5) Headache: -Persistent headache, will evaluate with CT of the head rule out subarachnoid hemorrhage Status: Acute (6) Contusion, arm, upper: Status: Acute Qualifiers: Encounter type: initial encounter Laterality: right Qualified Code(s): S40.021A - Contusion of right upper arm, initial encounter Additional A&P Information InTractable nausea vomiting secondary to gastroenteritis Symptoms started after eating pizza 48 hours ago Patient is afebrile, no bleeding per rectum, mildly high CRP, procalcitonin unremarkable, CTA negative for PE No need of antibiotics, hydrate with IV fluids Zofran antiemetic regimen Clinically dehydrated, rule out SBO, CT abdomen pelvis with IV contrast COVID antigen negative Leukocytosis secondary to stress-induced response, no signs of sepsis Anticipating improvement with resuscitation Full code DVT prophylaxis: Lovenox GI prophylaxis, Protonix IV Advance diet as tolerated Attestations Medical Necessity Statement*: Patient requires hospitalization due to gastroenteritis, dehydration, strep throat, headache Coding Level of Care Code Acute [employer] for [facility] 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
[2020-03-11 18:18] LABS: Coronavirus Lab Test PTC Negative
[2020-03-12] VITALS (7 sets, daily range): BP systolic 92–133; BP diastolic 53–77; PULSE 75–85; RESP 12–20; TEMP 36.4–37.3; O2SAT 95–99
[2020-03-12 06:12] LABS: Basophils # 0.1 10^3/uL (0.0-0.1); Basophils % 0.4 %; Eosinophils # 0.1 10^3/uL (0.0-0.8); Eosinophils % 0.7 %; Hematocrit 40.7 % (42.0-52.0); Hemoglobin 13.4 g/dL (11.7-16.6); Lymphocytes # 3.3 10^3/uL (0.8-4.8); Mean Corpuscular HGB Conc 32.9 g/dL (30.0-36.0); Mean Corpuscular Hemoglobin 29.1 pg (28.0-34.0); Mean Corpuscular Volume 88.5 fL (80-94); Mean Platelet Volume 10.5 fL (7.4-10.4); Monocytes % 8.1 %; Neutrophils # 7.44 10^3/uL (1.8-7.7); Neutrophils % 62.4 %; Nucleated Red Blood Cells % 0 %; Platelet Count 175 10^3/cmm (130-400); Red Cell Distribution Width 11.9 % (12.1-15.1); White Blood Count 11.9 10^3/uL (4.0-10.0)
[2020-03-12 06:41] LABS: Alanine Aminotransferase 20 U/L (0-41); Albumin Level 3.8 g/dL (3.5-5.2); Alkaline Phosphatase 64 IU/L (40-130); Aspartate Amino Transferase 19 U/L (0-40); Blood Urea Nitrogen 15 mg/dL (6-20); C Reactive Protein 1.8 mg/L (0.0-4.9); Calcium 8.2 mg/dL (8.5-10.5); Carbon Dioxide 26 mmol/L (22-29); Chloride 106 mmol/L (98-107); Globulin 1.9 g/dL (1.3-4.6); Glomerular Filtration Rate 94.4 mL/min (90-130); Glucose 97 mg/dL (65-115); Osmolality Calculated 282 mOsm/kg (285-295); Phosphorus 2.5 mg/dL (2.5-4.5); Sodium 138 mmol/L (136-145); Total Bilirubin 0.7 mg/dL (0.15-1.2); Total Protein 5.7 g/dL (6.6-8.7)
[2020-03-12 06:52] LABS: Procalcitonin 0.05 ng/mL (0-0.5)
[2020-03-12] MEDS: ondansetron 2 mg/ML SDV 2 mL 4 MG IVP ×2 (09:12→16:15)
[2020-03-12] MEDS: HYDROmorphone 1 mg/mL INJ 1 mL 0.5 MG IVP ×2 (09:12→16:19)
[2020-03-12] MEDS: pantoprazole 40 mg SDV IVP (09:13)
[2020-03-12] MEDS: cefTRIAXone 1,000 MG in sodium chloride 0.9% (plus) 50 ML 100 MG IV (09:13)
[2020-03-12] MEDS: sodium chloride 0.9% 1,000 ML 100 ML IV ×2 (09:21→22:47)
[2020-03-12 10:05] LABS: Rapid Strep A Test Negative (Negative)
[2020-03-12] MEDS: amoxicillin 500 mg Capsule PO ×2 (11:06→17:52)
--- NOTE | 2020-03-12 12:28 | P.PN_ITS ---
Subjective Subjective: Interval history: This morning, patient still complaining of multiple joint pains, muscle aches, mild headaches, no neck pain, no neck stiffness, no diarrhea, diffuse abdominal pain, still has sore throat, no fevers overnight, no chills, no nausea, no vomiting, does have poor appetite, Vitals/I&O/Wt Last Vital Signs Temp 98.5 F 03/12/20 11:22 Pulse 76 03/12/20 11:22 Resp 18 03/12/20 11:22 BP 113/69 03/12/20 11:22 Pulse Ox 99 03/12/20 11:22 03/11/20 03/12/20 03/12/20 22:59 06:59 14:59 Intake Total 1140 / 2670 60 / 2730 1530 / 1530 Output Total 925 / 925 Balance 1140 / 2670 60 / 2730 605 / 605 Weight last 48 hrs Weight 102.058 kg Physical Exam Const: COMMON NORMALS: no acute distress and patient oriented x3 HENMT: COMMON NORMALS: normocephalic HEAD & SCALP: normocephalic Neck/C-Spine: COMMON NORMALS: no JVD Resp: COMMON NORMALS: normal respiratory effort, No retractions, No use of accessory muscles and clear to auscultation bilaterally AUSCULTATION: clear to auscultation bilaterally Cardio: COMMON NORMALS: no JVD, regular rate, regular rhythm, S1 normal heart sound present and S2 normal heart sound present RATE: regular rate RHYTHM: regular rhythm HEART SOUNDS: S1 normal heart sound present and S2 normal heart sound present GI: COMMON NORMALS: Normal to inspection, nondistended, normoactive bowel sounds present, Soft to palpation, non-tender, No hepatosplenomegaly present, no masses and no bruits PALPATION: Yes Soft to palpation and Yes No hepatosplenomegaly present Extremity: COMMON NORMALS: capillary refill normal, no clubbing, cyanosis or edema, no calf tenderness and no pedal edema Neuro: COMMON NORMALS: patient oriented x3 Psych: COMMON NORMALS: mental status grossly normal Data : 03/12/20 05:20 03/12/20 05:20 Micro: Microbiology 03/11/20 09:35 Stool Lactoferrin - Final Stool Occult Blood (FIT) - Final 03/11/20 10:32 Throat Culture - Preliminary Throat 03/10/20 16:51 Blood Culture - Preliminary Blood NEGATIVE TO DATE 03/10/20 16:51 Blood Culture - Preliminary Blood NEGATIVE TO DATE 03/10/20 20:38 Gram Stain - Final Sputum - Expectorated Sputum A&P Assessment and plan (1) Intractable vomiting: -Continue IV hydration Status: Acute Qualifiers: Nausea presence: with nausea Vomiting type: unspecified Qualified Code(s): R11.2 - Nausea with vomiting, unspecified (2) Dehydration: -Continue IV hydration, monitor electrolytes Status: Acute (3) Gastroenteritis: -Continue IV hydration, Dilaudid for pain, Zofran for nausea -Inflammatory markers within normal limits -CT scan of the abdomen shows diffuse small bowel thickening, infectious versus inflammatory versus ischemic -Inflammatory markers within normal limits, lactic acid within normal limits -We will obtain stool studies, Status: Acute (4) Sore throat: -Given sore throat, I was not able to examine the back of the throat, voice sounds hoarse, difficulty opening the mouth, minimal trismus - CT of the neck was negative for any peritonsillar abscess tart Rocephin for strep throat, will do CT of the neck to rule out peritonsillar abscess -Patient has some features of rheumatic fever, will obtain antistreptolysin O, throat cultures -Switch to amoxicillin Status: Acute (5) Headache: -Persistent headache, CT of the head no acute findings Status: Acute (6) Contusion, arm, upper: Status: Acute Qualifiers: Encounter type: initial encounter Laterality: right Qualified Code(s): S40.021A - Contusion of right upper arm, initial encounter Additional A&P Information COVID antigen negative Leukocytosis secondary to stress-induced response, no signs of sepsis Anticipating improvement with resuscitation Full code DVT prophylaxis: Lovenox GI prophylaxis, Protonix IV Advance diet as tolerated Attestations Medical Necessity Statement*: She requires hospitalization for sore throat, gastroenteritis, dehydration 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
[2020-03-13] VITALS (7 sets, daily range): BP systolic 117–127; BP diastolic 65–87; PULSE 69–78; RESP 14–18; TEMP 36.2–37.2; O2SAT 95–99
[2020-03-13 05:29] LABS: Basophils % 0.5 %; Eosinophils # 0.1 10^3/uL (0.0-0.8); Eosinophils % 1.2 %; Hematocrit 42.3 % (42.0-52.0); Lymphocytes # 2.6 10^3/uL (0.8-4.8); Lymphocytes % 31.4 %; Mean Corpuscular HGB Conc 33.1 g/dL (30.0-36.0); Mean Corpuscular Hemoglobin 28.9 pg (28.0-34.0); Mean Corpuscular Volume 87.2 fL (80-94); Mean Platelet Volume 10.6 fL (7.4-10.4); Monocytes # 0.7 10^3/uL (0.2-0.9); Monocytes % 8.7 %; Neutrophils # 4.84 10^3/uL (1.8-7.7); Neutrophils % 57.8 %; Nucleated Red Blood Cells % 0 %; Platelet Count 180 10^3/cmm (130-400); Red Blood Count 4.85 10^6/uL (4.1-5.3); Red Cell Distribution Width 11.8 % (12.1-15.1); White Blood Count 8.4 10^3/uL (4.0-10.0)
[2020-03-13 05:51] LABS: Alanine Aminotransferase 23 U/L (0-41); Alkaline Phosphatase 67 IU/L (40-130); Aspartate Amino Transferase 22 U/L (0-40); Blood Urea Nitrogen 10 mg/dL (6-20); C Reactive Protein 1.5 mg/L (0.0-4.9); Calcium 8.4 mg/dL (8.5-10.5); Carbon Dioxide 27 mmol/L (22-29); Chloride 105 mmol/L (98-107); Globulin 2.3 g/dL (1.3-4.6); Glomerular Filtration Rate 94.4 mL/min (90-130); Glucose 111 mg/dL (65-115); Magnesium 1.9 mg/dL (1.7-2.3); Osmolality Calculated 285 mOsm/kg (285-295); Phosphorus 3.3 mg/dL (2.5-4.5); Sodium 139 mmol/L (136-145); Total Bilirubin 0.5 mg/dL (0.15-1.2); Total Protein 6.3 g/dL (6.6-8.7)
[2020-03-13 05:59] LABS: Anion Gap 10.8 (5-19); Potassium 3.8 mmol/L (3.5-5.1)
[2020-03-13] MEDS: enoxaparin 40 mg/0.4 mL Syringe SUBCUT (06:07)
[2020-03-13] MEDS: acetaminophen 325 mg Tablet 650 MG PO ×2 (06:10→20:06)
[2020-03-13 06:20] LABS: Procalcitonin 0.05 ng/mL (0-0.5)
[2020-03-13] MEDS: sodium chloride 0.9% 1,000 ML 100 ML IV ×2 (07:40→22:04)
[2020-03-13] MEDS: amoxicillin 500 mg Capsule PO ×2 (07:40→18:00)
[2020-03-13] MEDS: pantoprazole 40 mg SDV IVP (09:05)
[2020-03-13] MEDS: HYDROmorphone 1 mg/mL INJ 1 mL 0.5 MG IVP (09:40)
[2020-03-13 11:47] LABS: EBV IGM TEST <36.00 U/mL; EBV Nuclear AG >600.00 U/mL
[2020-03-13 13:42] LABS: Anti-streptolysin O 174 IU/mL (<200)
--- NOTE | 2020-03-13 22:00 | P.PN_ITS ---
Subjective Subjective: Interval history: Chart reviewed, resting in bed, room is dark upon my entry as he has quite a bit of light sensitivity. Patient known to me from workplace encounter. Reports having a headache and would like something for pain relief currently. Admits to being prone to migraines. Continues to have some soreness in his throat particularly when he swallows. Appetite is marginal. Hemodynamically stable, afebrile. Currently on room air. Medications: Reviewed: Yes Medication Review Details: Active Medications Generic Name Dose Route Start Last Admin Trade Name Freq PRN Reason Stop Dose Admin Acetaminophen 650 mg 03/11/20 10:18 03/13/20 20:06 Tylenol PO 650 mg Q4H PRN Administration MILD PAIN OR INCR EASE TEMP Amoxicillin 500 mg 03/12/20 09:50 03/13/20 18:00 Trimox PO 500 mg BID CLARISSA Administration Protocol Enoxaparin Sodium 40 mg 03/11/20 00:28 03/13/20 06:07 Lovenox SUBCUT 40 mg Q24H CLARISSA Administration Hydromorphone HCl 0.5 mg 03/11/20 10:18 03/13/20 09:40 Dilaudid Inj IVP 0.5 mg Q4H PRN Administration PAIN Sodium Chloride 1,000 mls @ 100 m ls/hr 03/11/20 00:28 03/13/20 07:40 Sodium Chloride 0.9% IV 100 mls/hr .Q10H CLARISSA Administration Ondansetron HCl 4 mg 03/11/20 00:28 03/12/20 16:15 Zofran IVP 4 mg Q6H PRN Administration NAUSEA AND VOMITI NG Pantoprazole Sodiu m 40 mg 03/11/20 09:00 03/13/20 09:05 Protonix IVP 40 mg DAILY CLARISSA Administration No Known Allergies Allergy (Verified 02/15/20 14:47) Vitals/I&O/Wt Last Vital Signs Temp 98.5 F 03/13/20 20:57 Pulse 74 03/13/20 20:57 Resp 18 03/13/20 20:57 BP 117/74 03/13/20 20:57 Pulse Ox 95 03/13/20 20:57 03/13/20 03/13/20 03/13/20 06:59 14:59 22:59 Intake Total 200 / 3310 1962.333 / 1962.333 360 / 2322.333 Output Total 600 / 2275 800 / 800 Balance -400 / 1035 1162.333 / 1162.333 360 / 1522.333 Physical Exam Const: COMMON NORMALS: no acute distress, patient oriented x3 and alert GENERAL APPEARANCE: cooperative and comfortable ORIENTATION/CONSCIOUSNESS: Yes awake OTHER: -Somewhat ill-appearing HENMT: COMMON NORMALS: normocephalic, atraumatic, hearing grossly normal bilaterally and moist oral mucous membranes HEAD & SCALP: normocephalic and atraumatic THROAT: posterior oropharynx normal Eye: COMMON NORMALS: Equal, round and reactive pupils present, EOMs intact bilaterally and conjunctivae normal CONJUNCTIVA: Yes conjunctivae normal PUPIL: Yes Equal, round and reactive pupils present Neck/C-Spine: COMMON NORMALS: full ROM GENERAL: Yes normal visual inspection and Yes trachea midline Resp: COMMON NORMALS: normal respiratory effort, No retractions, No use of accessory muscles and clear to auscultation bilaterally EFFORT & INSPECTION: Yes able to speak in complete sentences, Yes symmetric chest movement and No tachypneic AUSCULTATION: clear to auscultation bilaterally OTHER: -on RA Cardio: COMMON NORMALS: regular rate, regular rhythm, S1 normal heart sound present, S2 normal heart sound present and No murmurs present (Cardio) RATE: regular rate RHYTHM: regular rhythm HEART SOUNDS: S1 normal heart sound present and S2 normal heart sound present GI: COMMON NORMALS: Normal to inspection, nondistended, normoactive bowel sounds present, Soft to palpation and non-tender PALPATION: Yes Soft to palpation Extremity: COMMON NORMALS: normal to inspection, full ROM and no clubbing, cyanosis or edema; negative for no pedal edema Neuro: COMMON NORMALS: patient oriented x3, moves all extremities, no focal motor deficits, no sensory deficits noted and gait normal SE NSORIUM/ORIENTATION: Yes alert Psych: COMMON NORMALS: mental status grossly normal, Normal thought process present, cooperative, normal affect and speech normal SPEECH: Yes normal speech THOUGHT PROCESS: Normal thought process present Skin: COMMON NORMALS: no rashes or lesions noted, no jaundice, no petechiae and no mottling GENERAL SKIN EXAM: no rashes or lesions noted Data : 03/13/20 04:53 03/13/20 04:53 Micro: Microbiology 08/28/20 20:38 Gram Stain - Final Sputum - Expectorated Sputum Sputum Culture - Final 03/11/20 10:32 Throat Culture - Final Throat 03/12/20 11:08 Group A Streptococcus Rapid Screen - Preliminary Throat A&P Assessment and plan (1) Headache: -Admits to prior migraine headache history, not currently on any medications -Imaging negative including CT head -Pain control as needed Status: Acute Qualifiers: Headache type: unspecified Headache chronicity pattern: episodic headache Intractability: not intractable Qualified Code(s): R51 - Headache (2) Sore throat: -Imaging including CT neck negative -Strep A screen negative -Resolved leukocytosis, afebrile, hemodynamically stable -Currently on amoxicillin prophylactically -COVID-19 negative Status: Acute (3) Dehydration: -Improving oral hydration Status: Acute (4) Gastroenteritis: -Noted findings of enteritis on CT; low suspicion for infectious process given normal lactic acid, normal inflammatory markers -Diet as tolerated Status: Acute Additional A&P Information -GI ppx with PPI -DVT ppx with Lovenox -up with assistance -Dispo: home -Code status: FULL code Attestations Medical Necessity Statement*: Patient requires continued supportive care as he is still ill-appearing, with marginal oral intake. Time Spent in Patient Care: Greater than 35 minutes (>than 50% of time spent in counselling and/or direct pt care on unit) . Coding Level of Care Code Acute Building Maintenance Mechanic for Derrick Michaels Diagnoses Headache R51 Headache type: unspecified Headache chronicity pattern: episodic headache Intractability: not intractable Sore throat J02.9 Dehydration E86.0 Gastroenteritis K52.9
[2020-03-14] VITALS (7 sets, daily range): BP systolic 112–134; BP diastolic 73–87; PULSE 68–74; RESP 14–19; TEMP 36.8–37.3; O2SAT 96–99
[2020-03-14 04:55] LABS: Basophils % 0.4 %; Eosinophils # 0.2 10^3/uL (0.0-0.8); Eosinophils % 2.3 %; Hematocrit 41.8 % (42.0-52.0); Hemoglobin 14.2 g/dL (11.7-16.6); Lymphocytes # 3.1 10^3/uL (0.8-4.8); Lymphocytes % 33.6 %; Mean Corpuscular Hemoglobin 29.5 pg (28.0-34.0); Mean Corpuscular Volume 86.9 fL (80-94); Mean Platelet Volume 10.3 fL (7.4-10.4); Monocytes # 0.8 10^3/uL (0.2-0.9); Neutrophils # 4.96 10^3/uL (1.8-7.7); Neutrophils % 54.2 %; Nucleated Red Blood Cells % 0 %; Platelet Count 184 10^3/cmm (130-400); Red Blood Count 4.81 10^6/uL (4.1-5.3); Red Cell Distribution Width 11.7 % (12.1-15.1); White Blood Count 9.2 10^3/uL (4.0-10.0)
[2020-03-14 05:27] LABS: Alanine Aminotransferase 35 U/L (0-41); Albumin Level 3.8 g/dL (3.5-5.2); Alkaline Phosphatase 68 IU/L (40-130); Anion Gap 15.8 (5-19); Aspartate Amino Transferase 33 U/L (0-40); Blood Urea Nitrogen 11 mg/dL (6-20); C Reactive Protein 1.1 mg/L (0.0-4.9); Calcium 8.7 mg/dL (8.5-10.5); Carbon Dioxide 23 mmol/L (22-29); Chloride 104 mmol/L (98-107); Globulin 2.4 g/dL (1.3-4.6); Glomerular Filtration Rate 83.6 mL/min (90-130); Glucose 110 mg/dL (65-115); Magnesium 1.9 mg/dL (1.7-2.3); Osmolality Calculated 285 mOsm/kg (285-295); Phosphorus 4.3 mg/dL (2.5-4.5); Potassium 3.8 mmol/L (3.5-5.1); Sodium 139 mmol/L (136-145); Total Bilirubin 0.4 mg/dL (0.15-1.2); Total Protein 6.2 g/dL (6.6-8.7)
[2020-03-14 05:38] LABS: Procalcitonin 0.07 ng/mL (0-0.5)
[2020-03-14] MEDS: sodium chloride 0.9% 1,000 ML 100 ML IV (06:07)
[2020-03-14] MEDS: enoxaparin 40 mg/0.4 mL Syringe SUBCUT (06:07)
[2020-03-14] MEDS: amoxicillin 500 mg Capsule PO (08:16)
[2020-03-14] MEDS: acetaminophen 325 mg Tablet 650 MG PO (08:17)
[2020-03-14] MEDS: pantoprazole 40 mg SDV IVP (08:17)
[2020-03-14] MEDS: HYDROmorphone 1 mg/mL INJ 1 mL 0.5 MG IVP (09:17)
--- NOTE | 2020-03-14 09:55 | PC.NURSE ---
the patient stated that he was going to wait for his mother to come before he took a shower today
--- NOTE | 2020-03-14 18:04 | PM.DCS ---
Discharge Providers Date of Admission: 03/12/20 14:59 Date of Discharge: March 14, 2020 Attending Provider at Admission: Jammie Cortez MD Attending Provider at Discharge: Margaux Yoon MD Consults: None Primary Care Provider: Srinath Castellon MD Diagnoses at Discharge Discharge Diagnosis (1) Headache: Status: Acute Problem details: -Admits to prior migraine headache history, not currently on any medications -Imaging negative including CT head -Pain control as needed Qualifiers: Headache chronicity pattern: episodic headache Headache type: unspecified Intractability: not intractable Qualified Code(s): R51 - Headache (2) Sore throat: Status: Acute Problem details: -Imaging including CT neck negative -Strep A screen negative; anti-streptolysin antibody wnl -Resolved leukocytosis, afebrile, hemodynamically stable -on amoxicillin prophylactically -COVID-19 negative (3) Dehydration: Status: Resolved Problem details: -Improving oral hydration (4) Gastroenteritis: Status: Acute Problem details: -Noted findings of enteritis on CT; low suspicion for infectious process given normal lactic acid, normal inflammatory markers -Diet as tolerated Reason for Visit Reason for Visit: peter symtpoms Hospital Course Hospital Course: Patient was admitted to the medical surgical floor and started on IV fluid hydration secondary to concern for dehydration due to intractable nausea and vomiting. He was screened for COVID-19 which was negative in part due to have been exposed to his daughter who was positive for this infection. Due to complaints of nausea/vomiting and some abdominal discomfort he had CT scan of the abdomen done showing diffuse small bowel thickening which could be due to infectious versus inflammatory versus ischemic etiology. Inflammatory markers were normal, lactic acid was within normal limits. He was started on empiric antibiotics secondary to concern for pharyngitis, rapid strep test was negative, antistreptolysin antibody within normal limits. He has continued to have a persistent headache with some photophobia and admits to history of migraine headaches. This was treated symptomatically. He has been afebrile with resolved leukocytosis and gradually improving with supportive care. Consideration was given to lumbar puncture which was held off due to lack of further clinical findings suggestive of meningitis/encephalitis including fever, nuchal rigidity, altered mental status. He has been hemodynamically stable and though appetite has been marginal he has been able to tolerate some oral intake. He is encouraged to continue oral hydration and appropriate rest on return home and is to be off work until cleared for return by his primary care provider on his follow-up appointment. He is encouraged to seek medical attention immediately should any of his symptoms worsen particularly in terms of headache, neck stiffness, fever, inability to tolerate oral intake, worsening abdominal pain. Discharge Summary: -Patient to follow-up with primary care physician within 1 week Physical Exam Const: COMMON NORMALS: no acute distress, patient oriented x3 and alert GENERAL APPEARANCE: cooperative and comfortable ORIENTATION/CONSCIOUSNESS: Yes awake OTHER: -appears fatigued HENMT: COMMON NORMALS: normocephalic, atraumatic, hearing grossly normal bilaterally and moist oral mucous membranes HEAD & SCALP: normocephalic and atraumatic THROAT: posterior oropharynx normal Eye: COMMON NORMALS: Equal, round and reactive pupils present, EOMs intact bilaterally and conjunctivae normal CONJUNCTIVA: Yes conjunctivae normal PUPIL: Yes Equal, round and reactive pupils present Neck/C-Spine: COMMON NORMALS: full ROM GENERAL: Yes normal visual inspection and Yes trachea midline Resp: COMMON NORMALS: normal respiratory effort, No retractions, No use of accessory muscles and clear to auscultation bilaterally EFFORT & INSPECTION: Yes able to speak in complete sentences, Yes symmetric chest movement and No tachypneic AUSCULTATION: clear to auscultation bilaterally OTHER: -on RA Cardio: COMMON NORMALS: regular rate, regular rhythm, S1 normal heart sound present, S2 normal heart sound present and No murmurs present (Cardio) RATE: regular rate RHYTHM: regular rhythm HEART SOUNDS: S1 normal heart sound present and S2 normal heart sound present GI: COMMON NORMALS: Normal to inspection, nondistended, normoactive bowel sounds present, Soft to palpation and non-tender PALPATION: Yes Soft to palpation Extremity: COMMON NORMALS: normal to inspection, full ROM and no clubbing, cyanosis or edema; negative for no pedal edema Neuro: COMMON NORMALS: patient oriented x3, moves all extremities, no focal motor deficits, no sensory deficits noted and gait normal SENSORIUM/ORIENTATION: Yes alert Psych: COMMON NORMALS: mental status grossly normal, Normal thought process present, cooperative, normal affect and speech normal SPEECH: Yes normal speech THOUGHT PROCESS: Normal thought process present Skin: COMMON NORMALS: no rashes or lesions noted, no jaundice, no petechiae and no mottling GENERAL SKIN EXAM: no rashes or lesions noted Discharge Data Data Completed and Pending: Completed Studies During Hospitalization Category Date Time Status CT abdomen pelvis w con* [id number] Stat Cat Scan 03/10/20 23:[address] angio chest PE protcl [id number] Stat Cat Scan 03/10/20 17:[address] head wo con* 7 1970 Routine Cat Scan 03/11/20 10:[address] neck w con* 70 [id number] Routine Cat Scan 03/11/20 10:24 Completed XR chest 1V bubba ble [id number] Stat Exams 03/10/20 16:40 Completed Pending at discharge Category Date Time Status Blood Culture Sta t Lab 03/10/20 16:51 Results Miscellaneous Ary t Routine Lab 03/12/20 09:35 Received Miscellaneous Ary t Routine Lab 03/12/20 09:35 Received Labs from last 24 hours 03/14/20 03/14/20 03/14/20 04:23 04:23 04:23 WBC 9.2 RBC 4.81 Hgb 14.2 Hct 41.8 L MCV 86.9 MCH 29.5 MCHC 34.0 RDW 11.7 L Plt Count 184 MPV 10.3 Neut % (Auto) 54.2 Lymph % (Auto) 33.6 [place] % (Auto) 9.0 Eos % (Auto) 2.3 Baso % (Auto) 0.4 Neut # (Auto) 4.96 Lymph # (Auto) 3.1 [place] # (Auto) 0.8 Eos # (Auto) 0.2 Baso # (Auto) 0.0 Nucleated RBC % (a uto) 0 Nucleated RBCs # 0.0 Sodium 139 Potassium 3.8 Chloride 104 Carbon Dioxide 23 Anion Gap 15.8 BUN 11 Creatinine 1.0 GFR Calculation 83.6 L Glucose 110 Calculated Osmolal ity 285 Calcium 8.7 Phosphorus 4.3 Magnesium 1.9 Total Bilirubin 0.4 AST 33 ALT 35 Alkaline Phosphata se 68 C-Reactive Protein 1.1 Total Protein 6.2 L Albumin 3.8 Globulin 2.4 Procalcitonin 0.07 Vitals: Last Vital Signs Temp 99.2 F 03/14/20 15:24 Pulse 74 03/14/20 15:24 Resp 14 03/14/20 15:24 BP 121/74 03/14/20 15:24 Pulse Ox 96 03/14/20 15:24 Discharge Plan Discharge Patient Disposition: Home Condition: Stable Prescriptions: New amoxicillin 500 mg Capsule 500 mg PO BID 4 Days Qty: 8 RF: 0 No Action No Known Home Medications RF: 0 Discharge Orders: Discharge Order (Routine); Ordered 03/14/20 Ordered By: Margaux Yoon Referrals: Srinath Castellon MD [Primary Care Provider] - 03/24/20 10:45 am (Post hospital discharge follow up ) Discharge Diet: Advance as tolerated and As Directed Discharge Activity: Return to work/school after cleared by PCP/Specialist Patient Instructions: Amoxicillin (By mouth), Fever - Adult Activity Restrictions/Additional Instructions: -Please continue to hydrate appropriately with water -Continue to rest strongly recommended for recuperation Discharge Date/Time: 03/14/20 18:47 Discharge Attestations Time Spent in Discharge Care*: less than 30 min Specific Discharge Activities: Specific discharge activities: educating patient, discussing with field nurse case manager/social workers/dc planners, documenting/other paperwork and evaluating patient/reviewing data Status at Discharge: Cognitive status at discharge: cognitively intact, Behavioral status at discharge: cooperative and independent in ADL's, Functional status at discharge: independent ambulation Overall status at discharge: patient is progressing back to baseline Quality Metrics Clinical Quality Measures During this hospital stay, did patient experience: None Coding Level of Care Code Acute Marketing Operations Intern for Chg Fwd Diagnoses Headache R51 Headache chronicity pattern: episodic headache Headache type: unspecified Intractability: not intractable Sore throat J02.9 Dehydration E86.0 Gastroenteritis K52.9
== END 2020-03-14 18:47 | disposition home or self-care (01) | DRG 392 ==
LOC: ER 20:02 → MEDSURG 23:25
PROVIDERS: Emergency Medicine; Family Medicine; Admitting Provider Internal Medicine; PCP Family Medicine; Visit Provider Family Medicine
DX: K52.9 Noninfective gastroenteritis and colitis, unspecified (principal); E86.0 Dehydration; J02.9 Acute pharyngitis, unspecified; Z20.828 Contact with and (suspected) exposure to other viral communicable diseases
CPT/HCPCS: 12345; 36415; 36416; 70450; 70491; 71045; 71275; 74177; 80048; 80053; 81001; 82274; 82728; 82962; 83605; 83615; 83630; 83735; 84100; 84145; 85025; 85384; 85651; 86060; 86140; 86308; 87040; 87046; 87070; 87081; 87205; 87328; 87329; 87426; 87493; 87635; 87880; 96372; 96375; 99284; C9113; G0378; J0696; J1100; J1170; J1650; J1885; J2270; J2405; J3010; J3490; J7030; Q9967

== ENCOUNTER 2020-12-31 13:30 | Emergency (ER) | payer OTHER, SELFPAY ==
[2020-12-31 13:45] VITALS: BP 146/87; PULSE 94; RESP 18; TEMP 37.1; O2SAT 99; BMI 31.7
[2020-12-31 13:48] VITALS: PULSE 95; RESP 16; O2SAT 99
[2020-12-31] MEDS: lidocaine 1% INJ 20 mL INTRADERMA (14:12)
--- NOTE | 2020-12-31 14:50 | W.ED.WOUNDLC ---
HPI - Wound/Laceration General: Chief Complaint: Wound/Laceration Stated Complaint: LEFT HAND INJURY Time Seen by Provider: 12/31/20 13:52 History of Present Illness: HPI narrative: Patient sustained a laceration to his left wrist area while trying to open a kitchen window that broke on him. Onset (ago): minute(s) Extremity Location: Left: wrist Place: home Patient tetanus UTD: Yes Context: accidental Associated symptoms: Reports no associated symptoms; Denies chills or fever(s) Review of Systems Const: Denies: fever(s) or chills Musc: Denies: extremity pain Skin/Breast: Reports: other (Laceration left wrist) Psych: Denies: anxiety or depression PFSH ED PFSH: Medical History Contusion, arm, upper Headache -Admits to prior migraine headache history, not currently on any medications -Imaging negative including CT head -Pain control as needed No pertinent past medical history Sore throat -Imaging including CT neck negative -Strep A screen negative; anti-streptolysin antibody wnl -Resolved leukocytosis, afebrile, hemodynamically stable -on amoxicillin prophylactically -COVID-19 negative Surgical History History of appendectomy Hx of cholecystectomy Family History Grandmother No problems noted. Mother Cancer Leukemia, in remission Social History Smoking and tobacco status: never smoked Alcohol intake: never Lives independently: Yes Household members: spouse Housing: House Physical Exam Const: COMMON NORMALS: no acute distress Extremity: RIGHT UPPER EXTREMITY: Yes wrist and Yes hand & digits (Laceration, able to move all digits neuro vascular status intact) Psych: COMMON NORMALS: mental status grossly normal and cooperative Skin: OTHER: Laceration left wrist dorsal surface near the ulnar stylus irregular laceration no active bleeding has good range of motion of all distal extremities Procedures Laceration Laceration 1: Site: upper extremity Side (If applicable): left Size (cm): 6 Description: irregular and clean Depth: simple, single layer Local Anesthetic: lidocaine 1% Amount of anesthesia used (mL): 3 Pre-repair: wound explored, irrigated extensively and deep structures intact Skin layer closed with: other (Ethilon) Size (cm): 3-0 Number of sutures: 4 Course Vital Signs: Vital signs: Vital Signs Temperature 98.8 F 12/31/20 13:45 Pulse Rate 95 12/31/20 13:48 Respiratory Rate 16 12/31/20 13:48 Blood Pressure 146/87 12/31/20 13:45 Pulse Oximetry 99 12/31/20 13:48 Discharge Plan Discharge Patient Disposition: Home Clinical Impression: Laceration Condition: Stable Prescriptions: New cephalexin 500 mg capsule 500 mg PO Q8H 7 Days Qty: 21 RF: 0 No Action fluorouracil [Efudex] 5 % cream 1 applic topical BID Qty: 40 RF: 1 Discharge Orders: Discharge ED (Routine); Ordered 12/31/20 Ordered By: Korey Stokes Referrals: Srinath Castellon MD [Primary Care Provider] - Discharge Diet: Usual diet Discharge Activity: Resume usual activity Patient Instructions: Suture Care (ED), Laceration (ED) Activity Restrictions/Additional Instructions: Sutures out in 7 days follow-up your primary care return here for suture removal are can take them out yourself. Coding Level of Care Code ED Help Desk Agent for Derrick Michaels
== END 2020-12-31 14:22 | disposition home or self-care (01) ==
PROVIDERS: Emergency Provider Family Medicine; PCP Family Medicine
DX: S61.512A Laceration without foreign body of left wrist, initial encounter (principal); W45.8XXA Other foreign body or object entering through skin, initial encounter
CPT/HCPCS: 12002; 96372; 99282

== ENCOUNTER 2021-04-16 16:09 | Emergency (ER) | payer OTHER, SELFPAY ==
[2021-04-16 16:24] VITALS: BP 135/86; PULSE 90; RESP 16; TEMP 36.7; O2SAT 97; BMI 31.7
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
[2021-04-16 17:48] VITALS: BP 149/82; PULSE 85; RESP 18; O2SAT 97
[2021-04-16 17:53] VITALS: BP 156/69; PULSE 91; RESP 18; O2SAT 97
== END 2021-04-16 17:48 | disposition home or self-care (01) ==
PROVIDERS: Emergency Provider Family Medicine; PCP Family Medicine
DX: Z04.1 Encounter for examination and observation following transport accident (principal); V89.2XXA Person injured in unspecified motor-vehicle accident, traffic, initial encounter
CPT/HCPCS: 71101; 72040; 99281

== ENCOUNTER 2021-11-01 11:16 | Inpatient (IN) | payer SELFPAY ==
[2021-11-01] VITALS (12 sets, daily range): BP systolic 133–167; BP diastolic 74–106; PULSE 75–90; RESP 13–26; TEMP 36.8–37.1; O2SAT 96–100; BMI 31.7
--- NOTE | 2021-11-01 11:24 | CT_ITS ---
WS: [id number] CT HEAD TECHNIQUE: Noncontrast CT of the head obtained from the skullbase to the vertex. CLINICAL INFORMATION: altered mental status COMPARISON: March 11, 2020 DLP: 1168.[address] scans at [facility] use at least one of these dose optimization techniques: automated e xposure control; mA and/or kV adjustment per patient size (includes targeted exams where dose is matc hed to clinical indication); or iterative reconstruction. FINDINGS: No evidence of intracranial hemorrhage or mass effect. Ventricular system and basal cisterns are reeves nt. No extra-axial fluid collections. No evidence of mass or mass effect. Normal torres-white different iation. Paranasal sinuses are well aerated. Mild mucosal thickening in the LEFT sphenoid sinus and ethmoid ai r cells. Mastoid air cells well aerated. Normal visualized soft tissues. IMPRESSION: 1. No evidence of intracranial hemorrhage or mass effect. 2. Normal torres-white differentiation. 3. No acute intracranial findings and no changes since March 11, 2020.
--- NOTE | 2021-11-01 11:24 | XR_ITS ---
WS: [id number] Exam: XR chest 1V portable [id number] Date/Time of Exam: 11/01/2021 11:28 AM Reason For Exam: altered mental status Comparison 04/16/2021. Findings: The lungs are clear and fully expanded. Costophrenic angles are sharp. No infiltrates. Bronchovascula r relief appears normal. Cardiac silhouette is unremarkable. Bony elements are intact. XR/XR chest 1V portable [id number] IMPRESSION: Unremarkable chest radiograph.
--- NOTE | 2021-11-01 11:26 | ECG_ITS ---
[facility] Test Date: 2021-11-01 Pat Name: Abebe Simeon Department: Room: Gender: Male Tele Rn: : 1980 Requested By: Tommie Mc Order Number: [id number] Mack MD: Nano Kulkarni M.D. Measurements Intervals [place] Rate: 101 P: 51 MS: 144 QRS: 28 QRSD: 90 T: 32 QT: 311 QTc: 403 Interpretive Statements SINUS TACHYCARDIA No previous ECG available for comparison Electronically Signed On 11-01-2021 16:44:54 CDT by Nano Kulkarni M.D. [id number]
[2021-11-01 11:30] LABS: Glucose Point of Care 125 mg/dL (70-110)
[2021-11-01] MEDS: naloxone 0.4 mg/ml SDV 2 MG IVP (11:38)
[2021-11-01] MEDS: ondansetron 2 mg/ML SDV 2 mL 4 MG IVP (11:39)
[2021-11-01 11:40] LABS: Basophils # 0.1 10^3/uL (0.0-0.1); Basophils % 0.3 %; Eosinophils # 0.1 10^3/uL (0.0-0.8); Eosinophils % 0.5 %; Hematocrit 50.3 % (42.0-52.0); Lymphocytes % 11.9 %; Mean Corpuscular HGB Conc 33.8 g/dL (30.0-36.0); Mean Corpuscular Hemoglobin 29.7 pg (28.0-34.0); Mean Corpuscular Volume 87.9 fl (80-94); Mean Platelet Volume 10.5 fL (7.4-10.4); Monocytes # 0.9 10^3/uL (0.2-0.9); Monocytes % 5.5 %; Neutrophils # 13.48 10^3/uL (1.8-7.7); Neutrophils % 81.4 %; Nucleated Red Blood Cells % 0 %; Platelet Count 262 10^3/cmm (130-400); Red Blood Count 5.72 10^6/uL (4.1-5.3); White Blood Count 16.6 10^3/uL (4.0-10.0)
--- NOTE | 2021-11-01 11:49 | ED_ITS ---
HPI - Altered Mental Status General: Chief Complaint: General Medical Stated Complaint: vomiting blood / fainting Time Seen by Provider: 11/01/21 11:22 History of Present Illness: 41 year old male presents emergency department chief complaint of altered mental status. Patient was found to have sonorous respirations in the back of the car which is brought to the triage by staff no o bvious trauma appreciated patient has sonorous respirations minimal gag reflex and pinpoint pupils patient was brought into the ER for further assessment management per mother patient reportedly had 1 episode of bloody emesis patient does not have any history of any known GI issues. Review of Systems Narrative: Unable to do review of systems due to patient's altered mental status and obvious confusion on exam [facility] ED PFSH: Medical History Contusion, arm, upper Headache -Admits to prior migraine headache history, not currently on any medications -Imaging negative including CT head -Pain control as needed No pertinent past medical history Sore throat -Imaging including CT neck negative -Strep A screen negative; anti-streptolysin antibody wnl -Resolved leukocytosis, afebrile, hemodynamically stable -on amoxicillin prophylactically -COVID-19 negative Surgical History History of appendectomy Hx of cholecystectomy Family History Grandmother No problems noted. Mother Cancer Leukemia, in remission Social History Smoking and tobacco status: never smoked Alcohol intake: never Lives independently: Yes Household members: spouse Housing: House Physical Exam Narrative: Patient is unresponsive alert oriented x0 sonorous respirations easy arousable to painful stimuli current GCS is 9-10 pinpoint pupils noted bilaterally Eye: OTHER: Pinpoint pupils appreciated bilaterally 1 mm Neck/C-Spine: OTHER: Patient easily able to move all neck full range of motion no obvious injury apparent Chest: OTHER: No obvious trauma noted to the anterior chest wall Resp: OTHER: Equal breath sounds appreciated bilaterally with no obvious wheezing crackles rales or rhonchi noted Cardio: OTHER: Regular rate and rhythm S1-S2 no murmurs no bruits current rate in the 50s to 6 0s GI: OTHER: Abdomen is soft nondistended Back/Pelvis: OTHER: No obvious trauma apparent Extremity: OTHER: Moving all extremities no obvious injury apparent Neuro: OTHER: No obvious meningeal signs appreciated negative Kernig's negative presents keys GCS is currently 10 patient is drifting off to sleep however easily able to follow commands and speak after painful stimuli provided via sternal rub. Course Vital Signs: Vital signs: Vital Signs Temperature 98.7 F 11/01/21 11:29 Pulse Rate 82 11/01/21 17:31 Respiratory Rate 26 H 11/01/21 17:31 Blood Pressure 167/106 11/01/21 17:31 Pulse Oximetry 97 11/01/21 17:31 MDM - Altered Mental Status Medical Decision Making Due to the patient's symptom condition with established labwork imaging obtained underlying concerns of exogenous intake are prominent will be providing Narcan and Zofran additionally CT imaging the head will be obtained as well as chest x- ray. 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 At this time patient is able to move all of his extremities with painful stimuli will be looking at other issues contributing to his current altered mental status. Current oxygenation is 100% on room air patient does have a good gag reflex with a wandering GCS between 9-11 we will continue to follow Lab work and imaging came back reassuring patient was found a white count he had no meningeal symptoms which showed he had waxing waning altered mentation throughout his time emergency department I discussed the patient's case with Dr. Mitchell hospitalist is agreed acceptance to the medical surgical floor I will continue to follow. Lab Data : 11/01/21 11:22 11/01/21 11:22 Radiology Impressions Chest X-Ray 11/01/21 11:24 IMPRESSION: Unremarkable chest radiograph. Chest/Abdomen/Pelvis CT 11/01/21 14:42 IMPRESSION: 1. No acute thoracic findings. 2. Small hiatal hernia. IMPRESSION: 1. Minimal short segment small bowel distension in the mid-lower abdomen. See discussion above. No acute bowel findings otherwise. 2. Mild splenomegaly. Laboratory Results WBC 16.6 10^3/uL (4.0-10.0) H 11/01/21 11:22 RBC 5.72 10^6/uL (4.1-5.3) H 11/01/21 11:22 Hgb 17.0 g/dL (11.7-16.6) H 11/01/21 11:22 Hct 50.3 % (42.0-52.0) 11/01/21 11:22 MCV 87.9 fl (80-94) 11/01/21 11:22 MCH 29.7 pg (28.0-34.0) 11/01/21 11:22 MCHC 33.8 g/dL (30.0-36.0) 11/01/21 11:22 RDW 12.0 % (12.1-15.1) L 11/01/21 11:22 Plt Count 262 10^3/cmm (130-400) 11/01/21 11:22 MPV 10.5 fL (7.4-10.4) H 11/01/21 11:22 Neut % (Auto) 81.4 % 11/01/21 11:22 Lymph % (Auto) 11.9 % 11/01/21 11:22 Crowley % (Auto) 5.5 % 11/01/21 11:22 Eos % (Auto) 0.5 % 11/01/21 11:22 Baso % (Auto) 0.3 % 11/01/21 11:22 Neut # (Auto) 13.48 10^3/uL (1.8-7.7) H 11/01/21 11:22 Lymph # (Auto) 2.0 10^3/uL (0.8-4.8) 11/01/21 11:22 Crowley # (Auto) 0.9 10^3/uL (0.2-0.9) 11/01/21 11:22 Eos # (Auto) 0.1 10^3/uL (0.0-0.8) 11/01/21 11:22 Baso # (Auto) 0.1 10^3/uL (0.0-0.1) 11/01/21 11:22 Nucleated RBC % (auto) 0 % 11/01/21 11:22 Nucleated RBCs # 0.0 /100WBC 11/01/21 11:22 Specimen Type Arterial 11/01/21 12:20 Sample Site Radial, left 11/01/21 12:20 ABG pH 7.40 (7.35-7.45) 11/01/21 12:20 ABG pCO2 39.7 mmHg (35-45) 11/01/21 12:20 ABG pO2 110.0 mmHg (80.0-100.0) H 11/01/21 12:20 ABG HCO3 24.4 mmol/L (22-26) 11/01/21 12:20 ABG Base Excess -0.4 mmol/L (-2.0-2.0) 11/01/21 12:20 Hiro Test Pos 11/01/21 12:20 Hematocrit 49.7 % (42-52) 11/01/21 12:20 O2 Delivery Device Nc 11/01/21 12:20 O2 Liters/Min 2.0 % 11/01/21 12:20 FiO2 28.0 % 11/01/21 12:20 Roving Technician ID Bela 11/01/21 12:20 Sodium 139 mmol/L (136-145) 11/01/21 11:22 Potassium 4.4 mmol/L (3.5-5.1) 11/01/21 11:22 Chloride 102 mmol/L (98-107) 11/01/21 11:22 Carbon Dioxide 25 mmol/L (22-29) 11/01/21 11:22 Anion Gap 16.4 (5-19) 11/01/21 11:22 BUN 14 mg/dL (6-20) 11/01/21 11:22 Creatinine 1.0 mg/dL (0.7-1.2) 11/01/21 11:22 GFR Calculation 82.8 mL/min (90-130) L 11/01/21 11:22 Glucose 118 mg/dL (65-115) H 11/01/21 11:22 POC Glucose 125 mg/dL (70-110) H 11/01/21 11:25 Calculated Osmolality 290 mOsm/kg (285-295) 11/01/21 11:22 Calcium 10.2 mg/dL (8.5-10.5) 11/01/21 11:22 Total Bilirubin 0.7 mg/dL (0.15-1.2) 11/01/21 11:22 AST 24 U/L (0-40) 11/01/21 11:22 ALT 22 U/L (0-41) 11/01/21 11:22 Alkaline Phosphatase 102 IU/L (40-130) 11/01/21 11:22 C-Reactive Protein 6.3 mg/L (0.0-4.9) H 11/01/21 11:22 NT-Pro-B Natriuret Pep 5 pg/mL (0-125) 11/01/21 11:22 Total Protein 7.7 g/dL (6.6-8.7) 11/01/21 11:22 Albumin 5.2 g/dL (3.5-5.2) 11/01/21 11:22 Globulin 2.5 g/dL (1.3-4.6) 11/01/21 11: Lipase 18 U/L (13-60) 11/01/21 11:22 Urine Color Yellow (Yellow) 11/01/21 14:22 Urine Appearance Clear (CLEAR) 11/01/21 14:22 Urine pH 7 (5-7) 11/01/21 14:22 Ur Specific Steward 1.005 (1.005-1.030) 11/01/21 14:22 Urine Protein Neg (Negative) 11/01/21 14:22 Urine Glucose (UA) Norm (Normal) 11/01/21 14:22 Urine Ketones Negative (Negative) 11/01/21 14:22 Urine Blood Neg (Negative) 11/01/21 14:22 Urine Nitrate Negative (Negative) 11/01/21 14:22 Urine Bilirubin Neg (Negative) 11/01/21 14:22 Urine Urobilinogen Norm mg/dL (Negative) 11/01/21 14:22 Ur Leukocyte Esterase Negative (Negative) 11/01/21 14:22 Urine Opiates Screen Negative ng/mL (Negative) 11/01/21 14:22 Acetaminophen < 5.0 ug/mL (10-30) L 11/01/21 11:22 Ur Barbiturates Screen Negative ng/mL (Negative) 11/01/21 14:22 Ur Phencyclidine Scrn Negative ng/mL (Negative) 11/01/21 14:22 Ur Amphetamines Screen Negative ng/mL (Negative) 11/01/21 14:22 U Benzodiazepines Scrn Negative ng/mL (Negative) 11/01/21 14:22 Urine Cocaine Screen Negative ng/mL (Negative) 11/01/21 14:22 U Marijuana (THC) Screen Negative ng/mL (Negative) 11/01/21 14:22 Ethyl Alcohol < 10 mg/dL (0-10) 11/01/21 11:22 Discharge Plan Discharge Condition: Stable Prescriptions: No Action No Known Home Medications 0RF Referrals: Srinath Castellon MD [Primary Care Provider] - Coding Level of Care Code ED Front Office Administrator for Derrick Michaels
[2021-11-01 12:06] LABS: Alanine Aminotransferase 22 U/L (0-41); Albumin Level 5.2 g/dL (3.5-5.2); Alkaline Phosphatase 102 IU/L (40-130); Anion Gap 16.4 (5-19); Aspartate Amino Transferase 24 U/L (0-40); Blood Urea Nitrogen 14 mg/dL (6-20); C Reactive Protein 6.3 mg/L (0.0-4.9); Calcium 10.2 mg/dL (8.5-10.5); Carbon Dioxide 25 mmol/L (22-29); Chloride 102 mmol/L (98-107); Globulin 2.5 g/dL (1.3-4.6); Glomerular Filtration Rate 82.8 mL/min (90-130); Glucose 118 mg/dL (65-115); Lipase 18 U/L (13-60); NT Pro B Type Natriuretic Pept 5 pg/mL (0-125); Osmolality Calculated 290 mOsm/kg (285-295); Potassium 4.4 mmol/L (3.5-5.1); Sodium 139 mmol/L (136-145); Total Bilirubin 0.7 mg/dL (0.15-1.2); Total Protein 7.7 g/dL (6.6-8.7)
[2021-11-01 12:08] LABS: Acetaminophen < 5.0 ug/mL (10-30); Alcohol Level < 10 mg/dL (0-10)
[2021-11-01 12:32] LABS: ABG PCO2 39.7 mmHg (35-45); Arterial Blood Gas Hematocrit 49.7 % (42-52); Base Excess ABG -0.4 mmol/L (-2.0-2.0); Blood Gas Allen Test Pos; Blood Gas Sample Site Radial, left; Blood Gas Sample Type Arterial; HCO3 ABG 24.4 mmol/L (22-26)
[2021-11-01 12:33] LABS: Blood Gas Operator Identificat MONRO; Oxygen Device NC
[2021-11-01] MEDS: sodium chloride 0.9% 1,000 ML 999 ML IV (12:44)
[2021-11-01 14:29] LABS: Add Urine Microscopic? NO; Charge for UA Resulting for Rev
[2021-11-01 14:31] LABS: Bilirubin Urine Neg (Negative); Blood Urine Neg (Negative); Glucose Urine UA Norm (Normal); Ketones Urine Negative (Negative); Leukocyte Esterase Urine Negative (Negative); Nitrate Urine Negative (Negative); Protein Urine Neg (Negative); Specific Gravity, Urine 1.005 (1.005-1.030); Urine Appearance Clear (CLEAR); Urine Color Yellow (Yellow); Urobilinogen Urine Norm (Negative); pH Urine 7 (5-7)
[2021-11-01 14:39] LABS: Amphetamines Screen Urine Negative (Negative); Barbiturates Screen Urine Negative (Negative); Benzodiazepines Screen Urine Negative (Negative); Cocaine Screen Urine Negative (Negative); Opiate Screen Urine Negative (Negative); PCP Screen Urine Negative (Negative); THC Screen Urine Negative (Negative)
--- NOTE | 2021-11-01 14:42 | CTR_ITS ---
PROCEDURE INFORMATION: Exam: CT Chest With Contrast; Diagnostic Exam date and time: 11/01/2021 3:06 PM Age: 41 years old Clinical indication: Abdominal pain; Generalized; Angina pectoris; Prior surgery; Surgery type: Liver choley; Additional info: Altered mental status with chest/abdominal pain TECHNIQUE: Imaging protocol: Diagnostic computed tomography of the chest with contrast. Radiation optimization: All CT scans at this facility use at least one of these dose optimization techniques: automated exposure control; mA and/or kV adjustment per patient size (includes targeted exams where dose is matched to clinical indication); or iterative reconstruction. Contrast material: OMNI 350; Contrast volume: 95 ml; Contrast route: INTRAVENOUS (IV); COMPARISON: 1. CT abdomen pelvis w con* [id number] 03/11/2020 12:[address] angio chest PE protcl [id number] 03/10/2020 6:43 PM RADIATION DOSE METRICS: Total DLP (mGy-cm): 2143.1 FINDINGS: Lungs: Unremarkable. No consolidation. No masses. Pleural spaces: Unremarkable. No pneumothorax. No pleural effusion. Heart: No cardiomegaly. No pericardial effusion. Lymph nodes: No enlarged lymph nodes. Aorta: No aortic aneurysm. Diaphragm: Small hiatal hernia. Bones/joints: No acute findings. Soft tissues: No acute findings. Other findings: Several images are degraded due to external streak artifacts arising from patient's arm(s). PROCEDURE INFORMATION: Exam: CT Abdomen And Pelvis With Contrast Exam date and time: 11/01/2021 3:06 PM Age: 41 years old Clinical indication: Abdominal pain; Generalized; Angina pectoris; Prior surgery; Surgery type: Liver choley; Additional info: Altered mental status with chest/abdominal pain TECHNIQUE: Imaging protocol: Computed tomography of the abdomen and pelvis with contrast. Radiation optimization: All CT scans at this facility use at least one of these dose optimization techniques: automated exposure control; mA and/or kV adjustment per patient size (includes targeted exams where dose is matched to clinical indication); or iterative reconstruction. Contrast material: OMNI 350; Contrast volume: 95 ml; Contrast route: INTRAVENOUS (IV); COMPARISON: 1. CT abdomen pelvis w con* [id number] 03/11/2020 12:[address] angio chest PE protcl [id number] 03/10/2020 6:43 PM RADIATION DOSE METRICS: Total DLP (mGy-cm): 2143.1 FINDINGS: Liver: Normal. No mass. Gallbladder and bile ducts: Gallbladder has been removed. No bile duct dilatation. Pancreas: Normal. No ductal dilation. Spleen: Mild splenomegaly, unchanged. Adrenal glands: Normal. No mass. Kidneys and ureters: No obstructing calculus. No hydronephrosis. Stomach and bowel: There is minimal mid small bowel distension in the mid-lower abdomen with no large obstructive mass or abrupt transition. Findings may represent physiologic transient dilatation/regional ileus. However follow-up assessment including luminal bowel contrast may be obtained if there is a clinical concern for developing bowel obstruction. No pneumatosis or suspicious bowel wall thickening. Moderate stool burden. Appendix: No evidence of appendicitis. Intraperitoneal space: Unremarkable. No free air. No significant fluid collection. Arteries: Unremarkable. No abdominal aortic aneurysm. Lymph nodes: No enlarged lymph nodes. Urinary bladder: Unremarkable as visualized. Reproductive: Unremarkable as visualized. Bones/joints: No acute fracture. Soft tissues: No acute findings. Other findings: Several images are degraded due to external streak artifacts arising from patient's arm(s). CT/CT chest abd pel w con* IMPRESSION: 1. No acute thoracic findings. 2. Small hiatal hernia. IMPRESSION: 1. Minimal short segment small bowel distension in the mid-lower abdomen. See discussion above. No acute bowel findings otherwise. 2. Mild splenomegaly.
[2021-11-01] MEDS: iohexol 350 mg/mL 100 mL Btl IV (15:07)
--- NOTE | 2021-11-01 17:47 | PM.HP ---
Providers/Chief Complaint Primary Care Provider: Srinath Castellon MD Chief Complaint: vomiting blood / fainting History of Present Illness Abebe Simeon is a 41 year old male with a past medical history of exploratory laparotomy for gangrenous cholecystitis, not on any medications, due to a 12-hour history of not feeling well. Currently patient's alert, not oriented to person, not to place, not to time, he is very drowsy, he awakens to sternal rub, asks for his grandchild, but falls back asleep, he is able to withdraw from pain, daughter at bedside is able to arouse him, but falls back asleep, he arouses from the pen like, but falls back asleep. Most of the history was provided by daughter and mother at bedside. They tell me that he has been doing well in terms of his health recently, he has been stressed as he has 7 children to take care of, including a new grandchild. This morning he was not feeling well, complaining of a headache, he had episode of nausea, and then became quite drowsy, and confused. In the emergency room, he has a good gag reflex, withdraws from pain, maintaining his airway, GCS 11, he does awaken to sternal rubbing, he is able to answer questions, but none posed by me only by family members. Work-up in the emergency room was relatively unremarkable except for white blood cell count of 16.6. Hospitalist team was called for admission Review of Systems General: Reports: ROS unobtainable due to medical condition Medications/Allergies Home Medications Medication Instructions Recorded Confirmed Last Taken Type No Known Home Medications 11/01/21 11/01/21 Unknown History Allergies Allergy/AdvReac Type Severity Reaction Status Date / Time No Known Allergies Allergy Verified 11/01/21 15:15 PFSH Acute PFSH: Medical History Contusion, arm, upper Headache -Admits to prior migraine headache history, not currently on any medications -Imaging negative including CT head -Pain control as needed No pertinent past medical history Sore throat -Imaging including CT neck negative -Strep A screen negative; anti-streptolysin antibody wnl -Resolved leukocytosis, afebrile, hemodynamically stable -on amoxicillin prophylactically -COVID-19 negative Surgical History History of appendectomy Hx of cholecystectomy Family History Grandmother No problems noted. Mother Cancer Leukemia, in remission Social History Smoking and tobacco status: never smoked Alcohol intake: never Lives independently: Yes Household members: spouse Housing: House Vitals/I&O/Wt Last Vital Signs Temp 98.7 F 11/01/21 11:29 Pulse 82 11/01/21 17:31 Resp 26 H 11/01/21 17:31 BP 167/106 11/01/21 17:31 Pulse Ox 97 11/01/21 17:31 Weight last 48 hrs Weight 97.522 kg Physical Exam Const: COMMON NORMALS: no acute distress HENMT: COMMON NORMALS: normocephalic HEAD & SCALP: normocephalic Eye: COMMON NORMALS: Equal, round and reactive pupils present Neck/C-Spine: COMMON NORMALS: no JVD Resp: COMMON NORMALS: normal respiratory effort, No retractions, No use of accessory muscles and clear to auscultation bilaterally AUSCULTATION: clear to auscultation bilaterally Cardio: COMMON NORMALS: no JVD, regular rate, regular rhythm, S1 normal heart sound present and S2 normal heart sound present RATE: regular rate RHYTHM: regular rhythm HEART SOUNDS: S1 normal heart sound present and S2 normal heart sound present GI: COMMON NORMALS: Normal to inspection, nondistended, normoactive bowel sounds present, Soft to palpation, non-tender, No hepatosplenomegaly present, no masses and no bruits PALPATION: Yes Soft to palpation and Yes No hepatosplenomegaly present Extremity: COMMON NORMALS: capillary refill normal, no clubbing, cyanosis or edema, no calf tenderness and no pedal edema Neuro: OTHER: Patient is drowsy, awakens to sternal rub, asks for his grand child, falls back asleep, able to squeeze my fingers, able to withdraw from pain, pulls away from the light, does not follow commands, difficult to do neurologic testing no facial droop, no slurring of his words does sit up and in bed at times, then falls back asleep Psych: COMMON NORMALS: mental status grossly normal Data : 11/01/21 11:22 11/01/21 11:22 A&P Assessment and plan (1) AMS (altered mental status): - Altered mental status etiology unclear -Patient received Narcan, no significant response -No evidence of UTI -No significant evidence of pneumonia -U tox within normal limits -Ethanol within normal limits -No nuchal rigidity, no fevers, no new rashes -No focal symptoms -WBC 16.6 -IMPRESSION: 1. No acute thoracic findings. 2. Small hiatal hernia. IMPRESSION: 1. Minimal short segment small bowel distension in the mid-lower abdomen. See discussion above. No acute bowel findings otherwise. 2. Mild splenomegaly. 1.? No evidence of intracranial hemorrhage or mass effect. 2.? Normal torres-white differentiation. 3.? No acute intracranial findings and no changes since March 11, 2020. -Possible seizure-like episode,? No seizure-like episodes reported, we will do a trial of Keppra to see if that improves his mentation -Possible meningitis or encephalitis? Will order lumbar puncture, started on vancomycin, Rocephin, acyclovir, doxycycline -We will order MRI of the brain -Neurochecks, aspiration precautions, night stroke scale -Full code -SCDs for DVT prophylaxis, Lovenox on hold in preparation for lumbar puncture Nausea, vomiting, possible developing ileus? Keep n.p.o., IV fluids Status: Acute Attestations Medical Necessity Statement*: Patient requires hospitalization due to altered mental status, outpatient with observation Coding Level of Care Code Acute Supervisor [employer] for Derrick Michaels Diagnoses AMS (altered mental status) R41.52
[2021-11-01] MEDS: cefTRIAXone 2,000 MG in sodium chloride 0.9% (plus) 50 ML 100 MG IV (18:23)
[2021-11-01] MEDS: doxycycline 100 MG in sodium chloride 0.9% (plus) 100 ML IV (18:24)
[2021-11-01 18:37] LABS: Erythrocyte Sedimentation Rate 11 mm/hr (0-10)
[2021-11-01 18:47] LABS: Procalcitonin 0.05 ng/mL (0-0.5); Thyroid Stimulating Hormone 0.89 uIU/mL (0.27-4.20)
[2021-11-01 18:56] LABS: HIV 1 & 2 Antibody Non-Reactive (Non-Reactiv); HIV 1 & 2 Antigen Non-Reactive (Non-Reactiv)
[2021-11-01 18:58] LABS: C Reactive Protein 7.2 mg/L (0.0-4.9); Ferritin 254 ng/mL (30-400)
[2021-11-01] MEDS: dextrose 5%-sod chloride 0.9% 1,000 ML 125 ML IV (20:17)
[2021-11-01] MEDS: vancomycin 1,250 MG/250 ML PIGGYBACK 250 MG IV (20:20)
[2021-11-01] MEDS: famotidine 20 mg/2 mL INJ IVP (20:23)
[2021-11-01] MEDS: acyclovir 1,000 MG in sodium chloride 0.9% (100 ml) 100 ML 120 MG IV (20:30)
[2021-11-01 20:32] LABS: Hepatitis B Core IgM Non-Reactive (Nonreactive); Hepatitis B Surface Antigen Non-Reactive (Nonreactive); Hepatitis C Virus Antibody Non-Reactive (Nonreactive)
[2021-11-02] VITALS (14 sets, daily range): BP systolic 97–142; BP diastolic 61–81; PULSE 70–90; RESP 16–17; TEMP 36.6–37.3; O2SAT 94–97
[2021-11-02] MEDS: acyclovir 1,000 MG in sodium chloride 0.9% (100 ml) 100 ML 120 MG IV ×3 (04:58→19:58)
[2021-11-02] MEDS: dextrose 5%-sod chloride 0.9% 1,000 ML 125 ML IV ×2 (04:58→18:25)
[2021-11-02 05:04] LABS: Basophils % 0.4 %; Eosinophils # 0.2 10^3/uL (0.0-0.8); Hematocrit 43.9 % (42.0-52.0); Hemoglobin 13.8 g/dL (11.7-16.6); Lymphocytes # 2.5 10^3/uL (0.8-4.8); Lymphocytes % 24.9 %; Mean Corpuscular HGB Conc 31.4 g/dL (30.0-36.0); Mean Corpuscular Hemoglobin 29.4 pg (28.0-34.0); Mean Corpuscular Volume 93.6 fl (80-94); Mean Platelet Volume 10.1 fL (7.4-10.4); Monocytes % 9.9 %; Neutrophils # 6.26 10^3/uL (1.8-7.7); Neutrophils % 62.5 %; Nucleated Red Blood Cells % 0 %; Platelet Count 189 10^3/cmm (130-400); Red Blood Count 4.69 10^6/uL (4.1-5.3); Red Cell Distribution Width 12.2 % (12.1-15.1)
[2021-11-02] MEDS: cefTRIAXone 2,000 MG in sodium chloride 0.9% (plus) 50 ML 100 MG IV ×2 (05:19→16:57)
[2021-11-02 05:26] LABS: Alanine Aminotransferase 16 U/L (0-41); Albumin Level 3.4 g/dL (3.5-5.2); Alkaline Phosphatase 76 IU/L (40-130); Aspartate Amino Transferase 17 U/L (0-40); Blood Urea Nitrogen 11 mg/dL (6-20); Calcium 7.8 mg/dL (8.5-10.5); Carbon Dioxide 20 mmol/L (22-29); Chloride 108 mmol/L (98-107); Globulin 2.6 g/dL (1.3-4.6); Glomerular Filtration Rate 107.1 mL/min (90-130); Glucose 123 mg/dL (65-115); Osmolality Calculated 285 mOsm/kg (285-295); Phosphorus 2.2 mg/dL (2.5-4.5); Sodium 137 mmol/L (136-145); Total Bilirubin 0.5 mg/dL (0.15-1.2)
[2021-11-02] MEDS: acetaminophen 325 mg Tablet 650 MG PO ×2 (05:30→14:54)
[2021-11-02 06:09] LABS: Anion Gap 12.9 (5-19); Potassium 3.9 mmol/L (3.5-5.1)
[2021-11-02] MEDS: doxycycline 100 MG in sodium chloride 0.9% (plus) 100 ML IV ×2 (06:11→16:57)
[2021-11-02] MEDS: vancomycin 1,250 MG/250 ML PIGGYBACK 250 MG IV (06:15)
[2021-11-02] MEDS: famotidine 20 mg/2 mL INJ IVP ×2 (08:45→19:50)
--- NOTE | 2021-11-02 09:30 | MR_ITS ---
WS: [id number] MRI BRAIN WITHOUT CONTRAST HISTORY: ams COMPARISON: CT head 11/01/2021 TECHNIQUE: Diffusion imaging, multiplanar T1, T2 and FLAIR imaging obtained. No evidence for acute infarct or hemorrhage. Neely-white matter differentiation is normal. No remote or acute infarcts are volume loss. Ventricles and extra-axial spaces are normal. No inferior displacement of cerebellar tonsils. The sella turcica and pituitary gland are unremarkabl e. No signal abnormality or infarct at the brainstem. Dural venous sinuses and yocha dehe of Naqvi demonstrate no abnormality on this unenhanced studies. Paranasal sinuses: Clear. Mastoid air cells: Normal. Calvarium and scalp: Intact. MR/MR head wo con* [id number] IMPRESSION: 1. Unremarkable noncontrast MRI brain. 2. No infarct or edema or hydrocephalus.
--- NOTE | 2021-11-02 10:29 | P.PN_ITS ---
Subjective Subjective: Patient was seen this morning, daughter at bedside, daughter tells it has been no change overnight, upon seeing patient this morning, he is sleeping, on room air, normotensive, afebrile, normal sinus rhythm, no significant tachypnea, I called out his name he wakes up, but then falls back asleep, I was able to arouse him he tells me that his head is hurting him, he has spontaneous movement of his upper and lower extremities, he is able to squeeze my finger bilaterally able to wiggle his toes, but falls back asleep, can follow some commands but again is quite drowsy this morning Vitals/I&O/Wt Last Vital Signs Temp 98.2 F 11/02/21 07:34 Pulse 80 11/02/21 07:34 Resp 16 11/02/21 07:34 BP 121/71 11/02/21 07:34 Pulse Ox 97 11/02/21 07:34 11/01/21 11/02/21 11/02/21 22:59 06:59 14:59 Intake Total 625 / 625 1170 / 1795 350 / 350 Output Total 800 / 800 Balance 625 / 625 370 / 995 350 / 350 Weight last 48 hrs Weight 97.522 kg Weight 97.522 kg Physical Exam Const: COMMON NORMALS: no acute distress Resp: COMMON NORMALS: normal respiratory effort, No retractions, No use of accessory muscles and clear to auscultation bilaterally AUSCULTATION: clear to auscultation bilaterally Cardio: COMMON NORMALS: regular rate, regular rhythm, S1 normal heart sound present and S2 normal heart sound present RATE: regular rate RHYTHM: regular rhythm HEART SOUNDS: S1 normal heart sound present and S2 normal heart sound present GI: COMMON NORMALS: Normal to inspection, nondistended, normoactive bowel sounds present, Soft to palpation, non-tender and No hepatosplenomegaly present PALPATION: Yes Soft to palpation and Yes No hepatosplenomegaly present Extremity: COMMON NORMALS: no pedal edema Urinary Catheter Management: 2-way Urethral: Cath Placed During This Visit: yes Reason for Continuing Indwelling Catheter: Acute Urinary Retention or Obstruc tion Urinary Catheter Date of Insertion: 11/02/21 Urinary Catheter Time of Insertion: 04:45 Data : 11/02/21 04:35 11/02/21 04:35 Micro: Microbiology 11/01/21 18:00 Blood Culture - Preliminary Blood SPECIMEN COLLECTED 11/01/21 17:55 Blood Culture - Preliminary Blood SPECIMEN COLLECTED A&P Assessment and plan (1) AMS (altered mental status): - Altered mental status etiology unclear -Patient received Narcan, no significant response -No evidence of UTI -No significant evidence of pneumonia -U tox within normal limits -Ethanol within normal limits -No nuchal rigidity, no fevers, no new rashes -No focal symptoms -WBC 10, CRP 7.2, Pro-Ambrosio 0.05, ESR 11 -IMPRESSION: 1. No acute thoracic findings. 2. Small hiatal hernia. IMPRESSION: 1. Minimal short segment small bowel distension in the mid-lower abdomen. See discussion above. No acute bowel findings otherwise. 2. Mild splenomegaly. 1.? No evidence of intracranial hemorrhage or mass effect. 2.? Normal torres-white differentiation. 3.? No acute intracranial findings and no changes since March 11, 2020. -Possible seizure-like episode,? No seizure-like episodes reported, has not responded to trial of Keppra. -Possible meningitis or encephalitis? Will order lumbar puncture, started on vancomycin, Rocephin, acyclovir, doxycycline -We will order MRI of the brain -Neurochecks, aspiration precautions, night stroke scale -Full code -SCDs for DVT prophylaxis, Lovenox on hold in preparation for lumbar puncture Nausea, vomiting, possible developing ileus? 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
--- NOTE | 2021-11-02 11:01 | PC.CHAP ---
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 [] Patient/Family/Request visit [] Outpatient visit [] Follow-up visit [] Physician referral [] Code/Alert [x] Routine visit [] Staff referral [] Actively dying [] Patient sleeping [] Family support [] [] Out of room [] Palliative care [] [] Receiving care in room [] Pre-surgical visit [] Trauma [] Long length of stay [] ICU visit [] Other: Relational/Emotional Strength x[] Patient feels connected with others/family/visitors/staff [] Distress [] Loneliness/isolation [] Abandonment Spirituality of Patient [] Person of Myra [] Attends Zoroastrian of their Myra []x Believes in Prayer [] Reads Bible or Orthodox materials [] There are Spiritual issues to be addressed Scheduler Conveyor Interventions [x] Prayer [] Active listening [] Non-anxious presence [] Spiritual/emotional support [] Crisis/trauma care [] Spiritual counseling [] Bereavement support [] Provided bereavement packet [] Provided Bible/devotional materials [] Provided toy/stuffed animal, coloring book to patient or family member [] Provided Communion [] Anointing/[place] [] Salvation [x] Completed spiritual assessment [] Other: Impact on Illness or Injury [] Angry [] Fearful [] Anxious [] Often cries [] Exhaustion [] Unable to work [] Unable to attend faith [] Unable to walk/stand [] Unable to read [] Unable to drive [] Unable to eat/drink [] Unable to sleep [] Unable to be with family [] Patient intubated [] Other: Summary Time spent with patient
[2021-11-02 12:14] LABS: Appearance CSF CLEAR (CLEAR); Color CSF COLORLESS (COLORLESS)
[2021-11-02 12:15] LABS: Pathology Referral Yes
[2021-11-02 12:16] LABS: CSF Mononuclear # 0.002 10^3/uL (50-90); Mononuclear WBC CSF % 100 % (50-90); Polynuclear WBC CSF % 0 % (0-10); Red Blood Cell CSF 0 10^3/uL (0-0); White Blood Cell CSF 2 /uL (0-5)
[2021-11-02 12:32] LABS: Total Protein CSF 38 mg/dL (15-45)
--- NOTE | 2021-11-02 13:00 | FL_ITS ---
WS: [id number] LUMBAR PUNCTURE UNDER FLUOROSCOPY: OBTAIN CSF FOR ANALYSIS HISTORY: ams COMPARISON: None available. FLUOROSCOPY TIME: 22 seconds. # of spot films: 1 Procedure, complications, and risk and benefits explained to the patient. Consent was obtained. Recen t laboratory work and medication are reviewed prior to procedure. Skin over the lumbar is cleansed with ChloraPrep and anesthetized with 1% buffered lidocaine. Access into the thecal sac is achieved. CSF is removed in a sterile manner and placed in the sterile tubes. Approximately 12 ml removed without difficulty. CSF is clear and easily obtained. No complications are encountered. CSF this into the laboratory for analysis as requested. FL/FL guided lumbarpunc dx* [id number] IMPRESSION: Uncomplicated lumbar puncture for CSF.
--- NOTE | 2021-11-02 18:18 | PC.SLP ---
The pt was not alert enough to participate in a [facility] evaluation this date. [facility] REMOVER will follow-up with the pt tomorrow.
[2021-11-02 18:22] LABS: Glucose CSF 68 mg/dL (40-70)
[2021-11-02 18:25] LABS: Vancomycin Trough 6.7 ug/mL (10-15)
[2021-11-02] MEDS: vancomycin 1,500 MG/300 ML PIGGYBACK 200 MG IV (19:48)
[2021-11-03] VITALS (10 sets, daily range): BP systolic 117–134; BP diastolic 71–83; PULSE 80–98; RESP 12–18; TEMP 36.6–37.2; O2SAT 95–96
[2021-11-03] MEDS: dextrose 5%-sod chloride 0.9% 1,000 ML 125 ML IV ×2 (03:30→17:37)
[2021-11-03] MEDS: acetaminophen 325 mg Tablet 650 MG PO ×3 (03:30→19:59)
[2021-11-03] MEDS: acyclovir 1,000 MG in sodium chloride 0.9% (100 ml) 100 ML 120 MG IV ×2 (03:55→19:59)
[2021-11-03] MEDS: doxycycline 100 MG in sodium chloride 0.9% (plus) 100 ML IV ×2 (04:50→17:17)
[2021-11-03 06:05] LABS: Basophils # 0.1 10^3/uL (0.0-0.1); Basophils % 0.5 %; Eosinophils # 0.2 10^3/uL (0.0-0.8); Eosinophils % 2.3 %; Hematocrit 42.7 % (42.0-52.0); Hemoglobin 14.4 g/dL (11.7-16.6); Lymphocytes # 2.3 10^3/uL (0.8-4.8); Lymphocytes % 23.7 %; Mean Corpuscular HGB Conc 33.7 g/dL (30.0-36.0); Mean Corpuscular Hemoglobin 29.7 pg (28.0-34.0); Mean Platelet Volume 10.5 fL (7.4-10.4); Monocytes % 10.1 %; Neutrophils # 6.12 10^3/uL (1.8-7.7); Neutrophils % 63.2 %; Nucleated Red Blood Cells % 0 %; Platelet Count 213 10^3/cmm (130-400); Red Blood Count 4.85 10^6/uL (4.1-5.3); Red Cell Distribution Width 11.9 % (12.1-15.1); White Blood Count 9.7 10^3/uL (4.0-10.0)
[2021-11-03] MEDS: vancomycin 1,500 MG/300 ML PIGGYBACK 200 MG IV ×2 (06:07→18:44)
[2021-11-03 06:27] LABS: Alanine Aminotransferase 16 U/L (0-41); Albumin Level 3.9 g/dL (3.5-5.2); Alkaline Phosphatase 84 IU/L (40-130); Anion Gap 11.7 (5-19); Aspartate Amino Transferase 14 U/L (0-40); Blood Urea Nitrogen 6 mg/dL (6-20); Calcium 8.2 mg/dL (8.5-10.5); Carbon Dioxide 23 mmol/L (22-29); Chloride 108 mmol/L (98-107); Glomerular Filtration Rate 93.5 mL/min (90-130); Glucose 106 mg/dL (65-115); Magnesium 1.8 mg/dL (1.7-2.3); Osmolality Calculated 286 mOsm/kg (285-295); Phosphorus 2.1 mg/dL (2.5-4.5); Potassium 3.7 mmol/L (3.5-5.1); Sodium 139 mmol/L (136-145); Total Bilirubin 0.4 mg/dL (0.15-1.2); Total Protein 5.9 g/dL (6.6-8.7)
[2021-11-03] MEDS: famotidine 20 mg/2 mL INJ IVP ×2 (09:01→19:59)
[2021-11-03 10:05] LABS: Ammonia 30 umol/L (16-60)
--- NOTE | 2021-11-03 12:12 | P.TS_ITS ---
Transfer Summary Providers Date of Admission: 11/01/21 17:32 Date of Discharge/Transfer: 11/03/21 Attending Provider at Admission: Julián Mitchell MD Attending Provider at Transfer: Julián Mitchell MD Primary Care Provider: Srinath Castellon MD Transfer Plans: Anticipated date of transfer: 11/03/21 . Diagnoses at Discharge Discharge Diagnosis (1) AMS (altered mental status): Status: Acute Reason for Visit Reason for Visit vomiting blood / fainting Hospital Course Hospital Course Abebe Simeon is a 41 year old male with a past medical history of exploratory laparotomy for gangrenous cholecystitis, not on any medications, due to a 12-hour history of not feeling well.? Currently patient's alert, not oriented to person, not to place, not to time, he is very drowsy, he awakens to sternal rub, asks for his grandchild, but falls back asleep, he is able to withdraw from pain, daughter at bedside is able to arouse him, but falls back asleep, he arouses from the pen like, but falls back asleep.? Most of the history was provided by daughter and mother at bedside.? They tell me that he has been doing well in terms of his health recently, he has been stressed as he has 7 children to take care of, including a new grandchild.? This morning he was not feeling well, complaining of a headache, he had episode of nausea, and then became quite drowsy, and confused.? In the emergency room, he has a good gag reflex, withdraws from pain, maintaining his airway, GCS 11, he does awaken to sternal rubbing, he is able to answer questions, but none posed by me only by family members.? Work-up in the emergency room was relatively unremarkable exce pt for white blood cell count of 16.6.? Hospitalist team was called for admission Patient was admitted to [facility] for acute encephalopathy, altered mental status AMS (altered mental status): - Altered mental status etiology unclear possibly conversion disorder or focal seizures -Patient received Narcan, no significant response -No evidence of UTI -No significant evidence of pneumonia -U tox within normal limits -Ethanol within normal limits -ABG, pH 7.41, PCO2 39.7, PO2 110 on 28% FiO2- -Morning of 11/03/2021, no tachypnea, saturating high 90s on room air, lungs clear to auscultation, stating airway -No nuchal rigidity, no fevers, no new rashes -Lumbar puncture shows clear, colorless, specific gravity 1.020, 2 WBCs, 0 RBCs, glucose 68, total protein 38, gram stain no organisms, rare WBCs, culture so far unremarkable -Blood cultures so far unremarkable -CSF viral studies pending -No focal symptoms -Ammonia level 30 MRI of the brain -No evidence for acute infarct or hemorrhage. Neely-white matter differentiation is normal. No remote or acute infarcts are volume loss. Ventricles and extra-axial spaces are normal. No inferior displacement of cerebellar tonsils. The sella turcica and pituitary gland are unremarkable. No signal abnormality or infarct at the brainstem. Dural venous sinuses and pilot station of Naqvi demonstrate no abnormality on this unenhanced studies. Paranasal sinuses: Clear. Mastoid air cells: Normal. Calvarium and scalp: Intact. -WBC 9.7, CRP 7.2, Pro-Ambrosio 0.05, ESR 11 -IMPRESSION: 1. No acute thoracic findings. 2. Small hiatal hernia. IMPRESSION: 1. Minimal short segment small bowel distension in the mid-lower abdomen. See discussion above. No acute bowel findings otherwise. 2. Mild splenomegaly. 1.? No evidence of intracranial hemorrhage or mass effect. 2.? Normal neely-white differentiation. 3.? No acute intracranial findings and no changes since March 11, 2020. -Possible seizure-like episode,?? Was given 2 trials of Keppra, without any improvement of his symptoms -Possible encephalitis. started on vancomycin, Rocephin, acyclovir, doxycycline -Currently etiology possibly conversion disorder versus focal seizures versus viral encephalitis -After discussion with family, they would like him to be transferred to [facility] for neurology evaluation -Neurology and EEG monitoring not available here at [facility] over the weekend -Patient was excepted at [facility], spoke to neurology, general medical service, accepted transfer In terms of his neurologic testing, morning of 11/03/2021, upon entering the room I called out his name, he wakens up, he says yes, he immediately tells me that his head is hurting, he opens up his eyes, when asked him where he has he cannot answer, he can recognize family was at bedside, but he falls back asleep, he wakens up again when he stimulated, he is able to squeeze my fingers upper extremities, able to wiggle his toes, has generalized weakness, but able to follow commands no slurring of his words, no facial droop, pupils equal round reactive to light, does withdraw from the light all he says is at my head hurting him, daughter and mother at bedside tell me that his mentation has improved, he is much more alert, awake, but he falls back asleep immediately and this is not him Physical Exam Const: COMMON NORMALS: no acute distress Resp: COMMON NORMALS: normal respiratory effort, No retractions, No use of accessory muscles and clear to auscultation bilaterally AUSCULTATION: clear to auscultation bilaterally Cardio: COMMON NORMALS: regular rate, regular rhythm, S1 normal heart sound present and S2 normal heart sound present RATE: regular rate RHYTHM: regular rhythm HEART SOUNDS: S1 normal heart sound present and S2 normal heart sound present GI: COMMON NORMALS: Normal to inspection, nondistended, normoactive bowel sounds present, Soft to palpation and non-tender PALPATION: Yes Soft to palpation Extremity: COMMON NORMALS: no pedal edema Urinary Catheter Management: 2-way Urethral: Cath Placed During This Visit: yes Reason for Continuing Indwelling Catheter: Acute Urinary Retention or Obstruction Urinary Catheter Date of Insertion: 11/02/21 Urinary Catheter Time of Insertion: 04:45 TS Data Studies Completed and Pending Pending at discharge Category Date Time Status EEG electroencephalogram Stat Exams 11/01/21 17:42 Ordered Blood Culture Stat Lab 11/01/21 18:00 Results CMV IGG&IGM Panel Stat Lab 11/01/21 18:00 Received CSF Culture & Gram Stain Stat Lab 11/01/21 11:39 Results Complete Blood Count w/Auto AM LABS Lab 11/04/21 04:00 Ordered Comprehensive Metabolic Panel AM LABS Lab 11/04/21 04:00 Ordered EBV IGG & IGM Stat Lab 11/01/21 18:00 Received EBV PCR [[place] Virus QN PCR] Routine Lab 11/01/21 17:30 Received Herpes Simplex 1&2 IgG AB Routine Lab 11/02/21 10:51 Received Herpes Simplex Virus DNA Stat Lab 11/02/21 11:40 Received Lymes Disease Antibodies CSF Stat Lab 11/01/21 17:35 Received Magnesium AM LABS Lab 11/04/21 04:00 Ordered Miscellaneous Test Routine Lab 11/01/21 18:00 Received Phosphorus AM LABS Lab 11/04/21 04:00 Ordered Sputum Culture and Gram Stain Stat Lab 11/01/21 17:30 Uncollected [facility].Virus IFA CSF Stat Lab 11/01/21 17:35 Received Urine Culture Stat Lab 11/01/21 14:22 Results VDRL on CSF Stat Lab 11/01/21 17:35 Received Labs from last 24 hours 11/03/21 11/03/21 11/03/21 09:35 04:55 04:55 WBC 9.7 RBC 4.85 Hgb 14.4 Hct 42.7 MCV 88.0 D MCH 29.7 MCHC 33.7 D RDW 11.9 L Plt Count 213 MPV 10.5 H Neut % (Auto) 63.2 Lymph % (Auto) 23.7 [place] % (Auto) 10.1 Eos % (Auto) 2.3 Baso % (Auto) 0.5 Neut # (Auto) 6.12 Lymph # (Auto) 2.3 [place] # (Auto) 1.0 H Eos # (Auto) 0.2 Baso # (Auto) 0.1 Nucleated RBC % (auto) 0 Nucleated RBCs # 0.0 Sodium 139 Potassium 3.7 Chloride 108 H Carbon Dioxide 23 Anion Gap 11.7 BUN 6 Creatinine 0.9 GFR Calculation 93.5 Glucose 106 Calculated Osmolality 286 Calcium 8.2 L Phosphorus 2.1 L Magnesium 1.8 Total Bilirubin 0.4 AST 14 ALT 16 Alkaline Phosphatase 84 Ammonia 30 Total Protein 5.9 L Albumin 3.9 Globulin 2.0 CSF Appearance CSF Color CSF Specific Cut[place] CSF WBC CSF RBC CSF Mononuclear # Auto CSF Mononuclear WBCs % CSF Polynuclear WBCs # CSF Polynuclear WBCs % CSF Diff Comment CSF Glucose CSF Total Protein CSF VDRL Vancomycin Trough 11/02/21 11/02/21 11/02/21 17:23 11:40 11:40 WBC RBC Hgb Hct MCV MCH MCHC RDW Plt Count MPV Neut % (Auto) Lymph % (Auto) [place] % (Auto) Eos % (Auto) Baso % (Auto) Neut # (Auto) Lymph # (Auto) [place] # (Auto) Eos # (Auto) Baso # (Auto) Nucleated RBC % (auto) Nucleated RBCs # Sodium Potassium Chloride Carbon Dioxide Anion Gap BUN Creatinine GFR Calculation Glucose Calculated Osmolality Calcium Phosphorus Magnesium Total Bilirubin AST ALT Alkaline Phosphatase Ammonia Total Protein Albumin Globulin CSF Appearance CSF Color CSF Specific [place] 1.020 CSF WBC CSF RBC CSF Mononuclear # Auto CSF Mononuclear WBCs % CSF Polynuclear WBCs # CSF Polynuclear WBCs % CSF Diff Comment CSF Glucose 68 CSF Total Protein CSF VDRL Pending Vancomycin Trough 6.7 L 11/02/21 11:40 WBC RBC Hgb Hct MCV MCH MCHC RDW Plt Count MPV Neut % (Auto) Lymph % (Auto) [place] % (Auto) Eos % (Auto) Baso % (Auto) Neut # (Auto) Lymph # (Auto) [place] # (Auto) Eos # (Auto) Baso # (Auto) Nucleated RBC % (auto) Nucleated RBCs # Sodium Potassium Chloride Carbon Dioxide Anion Gap BUN Creatinine GFR Calculation Glucose Calculated Osmolality Calcium Phosphorus Magnesium Total Bilirubin AST ALT Alkaline Phosphatase Ammonia Total Protein Albumin Globulin CSF Appearance Clear CSF Color Colorless CSF Specific [place] CSF WBC 2 CSF RBC 0 CSF Mononuclear # Auto 0.002 L CSF Mononuclear WBCs % 100 H CSF Polynuclear WBCs # 0.000 CSF Polynuclear WBCs % 0 CSF Diff Comment Yes CSF Glucose CSF Total Protein 38 CSF VDRL Vancomycin Trough Completed Studies During Hospitalization Category Date Time Status CT chest abdomen pelvis [CT chest abd pel w con*] Stat Cat Scan 11/01/21 14:[address] head wo con* [id number] Urgent Cat Scan 11/01/21 11:24 Completed FL guided lumbarpunc dx* [id number] Stat Exams 11/02/21 13:00 Completed XR chest 1V portable [id number] Urgent Exams 11/01/21 11:24 Completed MR head wo con* [id number] Routine MRI 11/02/21 09:30 Completed Laboratory Last Values WBC 9.7 10^3/uL (4.0-10.0) 11/03/21 04:55 RBC 4.85 10^6/uL (4.1-5.3) 11/03/21 04:55 Hgb 14.4 g/dL (11.7-16.6) 11/03/21 04:55 Hct 42.7 % (42.0-52.0) 11/03/21 04:55 MCV 88.0 fl (80-94) D 11/03/21 04:55 MCH 29.7 pg (28.0-34.0) 11/03/21 04:55 MCHC 33.7 g/dL (30.0-36.0) D 11/03/21 04:55 RDW 11.9 % (12.1-15.1) L 11/03/21 04:55 Plt Count 213 10^3/cmm (130-400) 11/03/21 04:55 MPV 10.5 fL (7.4-10.4) H 11/03/21 04:55 Neut % (Auto) 63.2 % 11/03/21 04:55 Lymph % (Auto) 23.7 % 11/03/21 04:55 [place] % (Auto) 10.1 % 11/03/21 04:55 Eos % (Auto) 2.3 % 11/03/21 04:55 Baso % (Auto) 0.5 % 11/03/21 04:55 Neut # (Auto) 6.12 10^3/uL (1.8-7.7) 11/03/21 04:55 Lymph # (Auto) 2.3 10^3/uL (0.8-4.8) 11/03/21 04:55 [place] # (Auto) 1.0 10^3/uL (0.2-0.9) H 11/03/21 04:55 Eos # (Auto) 0.2 10^3/uL (0.0-0.8) 11/03/21 04:55 Baso # (Auto) 0.1 10^3/uL (0.0-0.1) 11/03/21 04:55 Nucleated RBC % (auto) 0 % 11/03/21 04:55 Nucleated RBCs # 0.0 /100WBC 11/03/21 04:55 ESR 11 mm/hr (0-10) H 11/01/21 11:22 Specimen Type Arterial 11/01/21 12:20 Sample Site Radial, left 11/01/21 12:20 ABG pH 7.40 (7.35-7.45) 11/01/21 12:20 ABG pCO2 39.7 mmHg (35-45) 11/01/21 12:20 ABG pO2 110.0 mmHg (80.0-100.0) H 11/01/21 12:20 ABG HCO3 24.4 mmol/L (22-26) 11/01/21 12:20 ABG Base Excess -0.4 mmol/L (-2.0-2.0) 11/01/21 12:20 Hiro Test Pos 11/01/21 12:20 Hematocrit 49.7 % (42-52) 11/01/21 12:20 O2 Delivery Device Nc 11/01/21 12:20 O2 Liters/Min 2.0 % 11/01/21 12:20 FiO2 28.0 % 11/01/21 12:20 Pain Management Physician ID Bela 11/01/21 12:20 Sodium 139 mmol/L (136-145) 11/03/21 04:55 Potassium 3.7 mmol/L (3.5-5.1) 11/03/21 04:55 Chloride 108 mmol/L (98-107) H 11/03/21 04:55 Carbon Dioxide 23 mmol/L (22-29) 11/03/21 04:55 Anion Gap 11.7 (5-19) 11/03/21 04:55 BUN 6 mg/dL (6-20) 11/03/21 04:55 Creatinine 0.9 mg/dL (0.7-1.2) 11/03/21 04:55 GFR Calculation 93.5 mL/min (90-130) 11/03/21 04:55 Glucose 106 mg/dL (65-115) 11/03/21 04:55 POC Glucose 125 mg/dL (70-110) H 11/01/21 11:25 Calculated Osmolality 286 mOsm/kg (285-295) 11/03/21 04:55 Calcium 8.2 mg/dL (8.5-10.5) L 11/03/21 04:55 Phosphorus 2.1 mg/dL (2.5-4.5) L 11/03/21 04:55 Magnesium 1.8 mg/dL (1.7-2.3) 11/03/21 04:55 Ferritin 254 ng/mL (30-400) 11/01/21 18:00 Total Bilirubin 0.4 mg/dL (0.15-1.2) 11/03/21 04:55 AST 14 U/L (0-40) 11/03/21 04:55 ALT 16 U/L (0-41) 11/03/21 04:55 Alkaline Phosphatase 84 IU/L (40-130) 11/03/21 04:55 Ammonia 30 umol/L (16-60) 11/03/21 09:35 C-Reactive Protein 7.2 mg/L (0.0-4.9) H 11/01/21 18:00 NT-Pro-B Natriuret Pep 5 pg/mL (0-125) 11/01/21 11:22 Total Protein 5.9 g/dL (6.6-8.7) L 11/03/21 04:55 Albumin 3.9 g/dL (3.5-5.2) 11/03/21 04:55 Globulin 2.0 g/dL (1.3-4.6) 11/03/21 04:55 Lipase 18 U/L (13-60) 11/01/21 11:22 Procalcitonin 0.05 ng/mL (0-0.5) 11/01/21 18:00 TSH 0.89 uIU/mL (0.27-4.20) 11/01/21 18:00 Urine Color Yellow (Yellow) 11/01/21 14:22 Urine Appearance Clear (CLEAR) 11/01/21 14:22 Urine pH 7 (5-7) 11/01/21 14:22 Ur Specific [place] 1.005 (1.005-1.030) 11/01/21 14:22 Urine Protein Neg (Negative) 11/01/21 14:22 Urine Glucose (UA) Norm (Normal) 11/01/21 14:22 Urine Ketones Negative (Negative) 11/01/21 14:22 Urine Blood Neg (Negative) 11/01/21 14:22 Urine Nitrate Negative (Negative) 11/01/21 14:22 Urine Bilirubin Neg (Negative) 11/01/21 14:22 Urine Urobilinogen Norm mg/dL (Negative) 11/01/21 14:22 Ur Leukocyte Esterase Negative (Negative) 11/01/21 14:22 CSF Appearance Clear (CLEAR) 11/02/21 11:40 CSF Color Colorless (COLORLESS) 11/02/21 11:40 CSF Specific [place] 1.020 11/02/21 11:40 CSF WBC 2 /uL (0-5) 11/02/21 11:40 CSF RBC 0 10^3/uL (0-0) 11/02/21 11:40 CSF Mononuclear # Auto 0.002 10^3/uL (50-90) L 11/02/21 11:40 CSF Mononuclear WBCs % 100 % (50-90) H 11/02/21 11:40 CSF Polynuclear WBCs # 0.000 10^3/uL (0-10) 11/02/21 11:40 CSF Polynuclear WBCs % 0 % (0-10) 11/02/21 11:40 CSF Diff Comment Yes 11/02/21 11:40 CSF Glucose 68 mg/dL (40-70) 11/02/21 11:40 CSF Total Protein 38 mg/dL (15-45) 11/02/21 11:40 Vancomycin Trough 6.7 ug/mL (10-15) L 11/02/21 17:23 Urine Opiates Screen Negative ng/mL (Negative) 11/01/21 14:22 Acetaminophen < 5.0 ug/mL (10-30) L 11/01/21 11:22 Ur Barbiturates Screen Negative ng/mL (Negative) 11/01/21 14:22 Ur Phencyclidine Scrn Negative ng/mL (Negative) 11/01/21 14:22 Ur Amphetamines Screen Negative ng/mL (Negative) 11/01/21 14:22 U Benzodiazepines Scrn Negative ng/mL (Negative) 11/01/21 14:22 Urine Cocaine Screen Negative ng/mL (Negative) 11/01/21 14:22 U Marijuana (THC) Screen Negative ng/mL (Negative) 11/01/21 14:22 Ethyl Alcohol < 10 mg/dL (0-10) 11/01/21 11:22 EBV Capsid Ag IgG, IgM Cancelled 11/01/21 18:00 Hepatitis A IgM Ab TNP 11/01/21 18:00 Hep Bs Antigen Non-reactive (Nonreactive) 11/01/21 18:00 Hep B Core IgM Ab Non-reactive (Nonreactive) 11/01/21 18:00 Hepatitis C Antibody Non-reactive (Nonreactive) 11/01/21 18:00 HIV 1&2 Ab & HIV 1 Ag Non-reactive (Non-Reactiv) 11/01/21 18:00 HIV 1&2 Antibody Non-reactive (Non-Reactiv) 11/01/21 18:00 Radiology Impressions Chest X-Ray 11/01/21 11:24 IMPRESSION: Unremarkable chest radiograph. Chest/Abdomen/Pelvis CT 11/01/21 14:42 IMPRESSION: 1. No acute thoracic findings. 2. Small hiatal hernia. IMPRESSION: 1. Minimal short segment small bowel distension in the mid-lower abdomen. See discussion above. No acute bowel findings otherwise. 2. Mild splenomegaly. Head MRI 11/02/21 09:30 IMPRESSION: 1. Unremarkable noncontrast MRI brain. 2. No infarct or edema or hydrocephalus. Lumbar Puncture Fluoroscopy 11/02/21 13:00 IMPRESSION: Uncomplicated lumbar puncture for CSF. Recent Clincial Data Last Vital Signs Temp 98.9 F 11/03/21 12:00 Pulse 87 11/03/21 12:00 Resp 12 11/03/21 12:00 BP 127/74 11/03/21 12:00 Pulse Ox 96 11/03/21 07:46 Vital Signs Temp Pulse Resp BP Pulse Ox 11/03/21 12:00 98.9 F 87 12 127/74 11/03/21 11:00 98.9 F 87 12 127/74 11/03/21 10:00 98.9 F 87 12 127/74 11/03/21 09:00 98.9 F 87 12 127/74 11/03/21 08:00 98.9 F 87 12 127/74 11/03/21 07:46 98.9 F 87 12 127/74 96 11/03/21 05:47 80 11/03/21 04:00 97.9 F 84 18 134/83 96 Intake & Output/Weight 11/01/21 11/02/21 11/03/21 11/04/21 06:59 06:59 06:59 06:59 Intake Total 1795 / 1795 3465 / 3465 660 / 660 Output Total 800 / 800 1600 / 1600 800 / 800 Balance 995 / 995 1865 / 1865 -140 / -140 Weight 97.522 kg Vitals Last Vital Signs Temp 98.9 F 11/03/21 12:00 Pulse 87 11/03/21 12:00 Resp 12 11/03/21 12:00 BP 127/74 11/03/21 12:00 Pulse Ox 96 11/03/21 07:46 TS Medications Medications Acetaminophen (Acetaminophen 325 Mg Tablet) 650 mg PO Q6H PRN PRN Reason: Mild/Mod Pain Or Temp >/= 101 Last Admin: 11/03/21 09:05 Dose: 650 mg Documented by: Famotidine (Famotidine 20 Mg/2 Ml Inj) 20 mg IVP Q12H CLARISSA Last Admin: 11/03/21 09:01 Dose: 20 mg Documented by: Dextrose/Sodium Chloride (Dextrose 5%-Sod Chloride 0.9%) 1,000 mls @ 125 mls/hr IV .Q8H CLARISSA Last Admin: 11/03/21 03:30 Dose: 125 mls/hr Documented by: Acyclovir 1,000 mg/ Sodium (Chloride) 120 mls @ 120 mls/hr IV Q8H CLARISSA Last Infusion: 11/03/21 04:55 Dose: Infused Documented by: Doxycycline Hyclate 100 mg/ (Sodium Chloride) 100 mls @ 100 mls/hr IV Q12H CLARISSA; Protocol Last Infusion: 11/03/21 05:50 Dose: Infused Documented by: Vancomycin/PEG/NADA/Lysine/Water (Vancocin) 1,500 mg in 300 mls @ 200 mls/hr IV Q12H [facility] Last Infusion: 11/03/21 07:40 Dose: Infused Documented by: Ceftriaxone Sodium 2,000 mg/ (Sodium Chloride) 50 mls @ 100 mls/hr IV Q24H [facility]; Protocol Ondansetron HCl (Ondansetron 4 Mg Tablet) 4 mg PO Q8H PRN PRN Reason: NAUSEA Discontinued Medications Sodium Chloride (Sodium Chloride 0.9%) 1,000 mls @ 999 mls/hr IV .Q1H1M ONE Stop: 11/01/21 12:24 Last Admin: 11/01/21 12:44 Dose: 999 mls/hr Documented by: Ceftriaxone Sodium 2,000 mg/ (Sodium Chloride) 50 mls @ 100 mls/hr IV Q12H [facility]; Protocol Last Infusion: 11/02/21 17:58 Dose: Infused Documented by: Levetiracetam 500 mg/ Sodium (Chloride) 105 mls @ 420 mls/hr IV Q12H [facility] Last Admin: 11/01/21 22:30 Dose: Not Given Documented by: Vancomycin/PEG/NADA/Lysine/Water (Vancocin) 1,250 mg in 250 mls @ 250 mls/hr IV Q12H [facility] Last Infusion: 11/02/21 07:15 Dose: Infused Documented by: Levetiracetam 500 mg/ Sodium (Chloride) 105 mls @ 420 mls/hr IV Q12H [facility] Last Admin: 11/02/21 14:16 Dose: Not Given Documented by: Levetiracetam 500 mg/ Sodium (Chloride) 105 mls @ 420 mls/hr IV Q12H [facility] Last Admin: 11/02/21 14:16 Dose: Not Given Documented by: Levetiracetam 500 mg/ Sodium (Chloride) 105 mls @ 420 mls/hr IV Q12H [facility] Last Infusion: 11/02/21 12:43 Dose: Infused Documented by: Levetiracetam 1,000 mg/ Sodium (Chloride) 110 mls @ 440 mls/hr IV ONCE ONE Stop: 11/03/21 11:14 Last Admin: 11/03/21 11:07 Dose: 440 mls/hr Documented by: Iohexol (Iohexol 350 Mg/Ml 100 Ml Btl) 0 ml IV ONCE ONE Stop: 11/01/21 15:07 Last Admin: 11/01/21 15:07 Dose: 95 ml Documented by: Naloxone HCl (Naloxone 1 Mg/Ml Syringe) 2 mg IVP ONCE ONE Stop: 11/01/21 11:21 Last Admin: 11/01/21 11:40 Dose: Not Given Documented by: Naloxone HCl (Naloxone 0.4 Mg/Ml Sdv) 2 mg IVP ONCE ONE Stop: 11/01/21 11:31 Last Admin: 11/01/21 11:38 Dose: 2 mg Documented by: Naloxone HCl (Naloxone 0.4 Mg/Ml Sdv) Confirm Administered Dose 0.4 mg .ROUTE .STK-MED ONE Stop: 11/01/21 11:24 Ondansetron HCl (Ondansetron 2 Mg/Ml Sdv 2 Ml) 4 mg IVP ONCE ONE Stop: 11/01/21 11:21 Last Admin: 11/01/21 11:39 Dose: 4 mg Documented by: Allergies No Known Allergies Allergy (Verified 11/01/21 15:15) Home Medications No Known Home Medications 11/01/21 [History Confirmed 11/01/21] Discharge Plan Discharge Patient Disposition: Home Condition: Stable Prescriptions: No Action No Known Home Medications 0RF Discharge Orders: Transfer Out of Facility (Order); Ordered 11/03/21 Ordered By: Julián Mitchell Referrals: Srinath Castellon MD [Primary Care Provider] - Patient Instructions: Opioid Safety Transfer Attestations Time Spent in Transfer Care: less than 30 min Status at Transfer: Cognitive status at transfer: cognitively intact ; Behavioral status at transfer: cooperative and independent in ADL's ; Quality Metrics Clinical Quality Measures [ No reported AMI, CVA or VTE this stay] Coding Level of Care Code 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
--- NOTE | 2021-11-03 12:12 | PC.NURSE ---
Patient being transferred to [facility]. Report called to ZITA Buitrago. Awaiting EMS transport
--- NOTE | 2021-11-03 14:49 | PC.NURSE ---
Pt wanted to talk to Dr. Mitchell, he came and spoke to the patient who decided he didn't want to be transferred to [place]. Dr. Mitchell told this nurse, in which this nurse contacted [facility] to let them know patient will no longer be coming to their facility.
[2021-11-04] VITALS (7 sets, daily range): BP systolic 111–126; BP diastolic 65–80; PULSE 71–95; RESP 17–18; TEMP 36.6–36.8; O2SAT 96
[2021-11-04] MEDS: acyclovir 1,000 MG in sodium chloride 0.9% (100 ml) 100 ML 120 MG IV (03:49)
[2021-11-04 05:32] LABS: Basophils # 0.1 10^3/uL (0.0-0.1); Basophils % 0.7 %; Eosinophils # 0.3 10^3/uL (0.0-0.8); Eosinophils % 3.4 %; Hematocrit 40.9 % (42.0-52.0); Hemoglobin 13.9 g/dL (11.7-16.6); Lymphocytes # 2.6 10^3/uL (0.8-4.8); Lymphocytes % 30.4 %; Mean Corpuscular Hemoglobin 29.8 pg (28.0-34.0); Mean Corpuscular Volume 87.8 fl (80-94); Mean Platelet Volume 10.2 fL (7.4-10.4); Monocytes # 0.8 10^3/uL (0.2-0.9); Monocytes % 9.6 %; Neutrophils # 4.73 10^3/uL (1.8-7.7); Neutrophils % 55.4 %; Nucleated Red Blood Cells % 0 %; Platelet Count 197 10^3/cmm (130-400); Red Blood Count 4.66 10^6/uL (4.1-5.3); Red Cell Distribution Width 11.9 % (12.1-15.1); White Blood Count 8.5 10^3/uL (4.0-10.0)
[2021-11-04 05:52] LABS: Vancomycin Trough 11.8 ug/mL (10-15)
[2021-11-04 05:53] LABS: Alanine Aminotransferase 16 U/L (0-41); Albumin Level 3.7 g/dL (3.5-5.2); Alkaline Phosphatase 80 IU/L (40-130); Anion Gap 14.6 (5-19); Aspartate Amino Transferase 16 U/L (0-40); Blood Urea Nitrogen 6 mg/dL (6-20); Calcium 8.5 mg/dL (8.5-10.5); Carbon Dioxide 21 mmol/L (22-29); Chloride 109 mmol/L (98-107); Creatinine Clr Calc Pharmacy 113.0956; Globulin 2.2 g/dL (1.3-4.6); Glomerular Filtration Rate 82.8 mL/min (90-130); Glucose 109 mg/dL (65-115); Magnesium 1.8 mg/dL (1.7-2.3); Osmolality Calculated 290 mOsm/kg (285-295); Phosphorus 2.8 mg/dL (2.5-4.5); Potassium 3.6 mmol/L (3.5-5.1); Sodium 141 mmol/L (136-145); Total Bilirubin 0.4 mg/dL (0.15-1.2); Total Protein 5.9 g/dL (6.6-8.7)
[2021-11-04] MEDS: doxycycline 100 MG in sodium chloride 0.9% (plus) 100 ML IV (06:29)
[2021-11-04] MEDS: acetaminophen 325 mg Tablet 650 MG PO (07:59)
[2021-11-04] MEDS: vancomycin 1,500 MG/300 ML PIGGYBACK 150 MG IV (08:00)
[2021-11-04] MEDS: famotidine 20 mg/2 mL INJ IVP (08:00)
--- NOTE | 2021-11-04 08:46 | P.DS_ITS ---
Discharge Providers Date of Admission: 11/02/21 10:33 Date of Discharge: November 04, 2021 Attending Provider at Admission: Julián Mitchell MD Attending Provider at Discharge: Julián Mitchell MD Primary Care Provider: Srinath Castellon MD Diagnoses at Discharge Discharge Diagnosis (1) AMS (altered mental status): Status: Acute Reason for Visit Reason for Visit: vomiting blood / fainting Hospital Course Hospital Course Abebe Simeon is a 41 year old male with a past medical history of exploratory laparotomy for gangrenous cholecystitis, not on any medications, due to a 12-hour history of not feeling well.? Currently patient's alert, not oriented to person, not to place, not to time, he is very drowsy, he awakens to sternal rub, asks for his grandchild, but falls back asleep, he is able to withdraw from pain, daughter at bedside is able to arouse him, but falls back asleep, he arouses from the pen like, but falls back asleep.? Most of the history was provided by daughter and mother at bedside.? They tell me that he has been doing well in terms of his health recently, he has been stressed as he has 7 children to take care of, including a new grandchild.? This morning he was not feeling well, complaining of a headache, he had episode of nausea, and then became quite drowsy, and confused.? In the emergency room, he has a good gag reflex, withdraws from pain, maintaining his airway, GCS 11, he does awaken to sternal rubbing, he is able to answer questions, but none posed by me only by family members.? Work-up in the emergency room was relatively unremarkable except for white blood cell count of 16.6.? Hospitalist team was called for adm ission Patient was admitted to [facility] for acute encephalopathy, altered mental status AMS (altered mental status): - Altered mental status etiology unclear possibly conversion disorder or focal seizures -Patient received Narcan, no significant response -No evidence of UTI -No significant evidence of pneumonia -U tox within normal limits -Ethanol within normal limits -ABG, pH 7.41, PCO2 39.7, PO2 110 on 28% FiO2- -Morning of 11/03/2021, no tachypnea, saturating high 90s on room air, lungs clear to auscultation, stating airway -No nuchal rigidity, no fevers, no new rashes -Lumbar puncture shows clear, colorless, specific gravity 1.020, 2 WBCs, 0 RBCs, glucose 68, total protein 38, gram stain no organisms, rare WBCs, culture so far unremarkable -Blood cultures so far unremarkable -CSF viral studies pending -No focal symptoms -Remained afebrile, normotensive -Ammonia level 30 MRI of the brain -No evidence for acute infarct or hemorrhage. Neely-white matter differentiation is normal. No remote or acute infarcts are volume loss. Ventricles and extra-axial spaces are normal. No inferior displacement of cerebellar tonsils. The sella turcica and pituitary gland are unremarkable. No signal abnormality or infarct at the brainstem. Dural venous sinuses and north fork of Naqvi demonstrate no abnormality on this unenhanced studies. Paranasal sinuses: Clear. Mastoid air cells: Normal. Calvarium and scalp: Intact. -WBC 9.7, CRP 7.2, Pro-Ambrosio 0.05, ESR 11 -IMPRESSION: 1. No acute thoracic findings. 2. Small hiatal hernia. IMPRESSION: 1. Minimal short segment small bowel distension in the mid-lower abdomen. See discussion above. No acute bowel findings otherwise. 2. Mild splenomegaly. 1.? No evidence of intracranial hemorrhage or mass effect. 2.? Normal neely-white differentiation. 3.? No acute intracranial findings and no changes since March 11, 2020. -Possible seizure-like episode,?? Was given 2 trials of Keppra, without any improvement of his symptoms -Possible encephalitis. started on vancomycin, Rocephin, acyclovir, doxycycline -Currently etiology possibly conversion disorder versus focal seizures versus viral encephalitis -After discussion with family, they would like him to be transferred to [facility] for neurology evaluation -Neurology and EEG monitoring not available here at [facility] over t he weekend -Patient was accepted at [facility], spoke to neurology, general medical service, accepted transfer -I spoke to neurologist at [facility] in the hospitalist, advised that I do not have a good explanation for patient's symptomatology, I feel that is likely conversion disorder, however I cannot do EEG monitoring, and I do not have neurology coverage, they are agreeable for transfer -Patient's family was notified of acceptance at [facility] and arrangements were made for transfer -I was advised by nursing staff that patient was awake alert to person, to place, to time, sitting up in bed declining transfer to [facility] -I examined patient, he is alert to person, to place, not to time, he follows commands, he does not know why he is in the hospital, does complain of a headache, he tells me that he does not want to go to [facility] -I advised him that I do not feel that he has an encephalitis, no evidence of meningitis, no evidence of bleed, no evidence of stroke, no evidence of seizures, I gave him a trial of Keppra this morning he did not really respond to it -I discussed my concerns as I do not have a good explanation for his symptomatology I would recommend transfer to [facility] -He voiced understanding, all questions answered, discussed risks and benefits of transfer, morbidity and mortality associated with missed diagnosis, and missing further evaluation, and family at bedside, voiced recently, declines for now -Given patient's sudden change in mentation soon as he and family was notified that he was accepted at [facility], [place] my suspicion that he has some component of conversion disorder -Patient according to nursing staff was able to get up to the bedside commode and able to walk with physical therapy, Bedolla catheter was removed, -The morning of 11/04/2021, he is alert oriented x3, following all commands, no focal weakness, he he has no particular complaints, he is agreeable to go home, follow-up with neurology as outpatient, -I will Dr. Mark jennings just before discharge Physical Exam Const: COMMON NORMALS: no acute distress and patient oriented x3 Resp: COMMON NORMALS: normal respiratory effort, No retractions, No use of accessory muscles and clear to auscultation bilaterally AUSCULTATION: clear to auscultation bilaterally Cardio: COMMON NORMALS: regular rate, regular rhythm, S1 normal heart sound present and S2 normal heart sound present RATE: regular rate RHYTHM: regular rhythm HEART SOUNDS: S1 normal heart sound present and S2 normal heart sound present GI: COMMON NORMALS: Normal to inspection, nondistended, normoactive bowel sounds present, Soft to palpation, non-tender and No hepatosplenomegaly present PALPATION: Yes Soft to palpation and Yes No hepatosplenomegaly present Extremity: COMMON NORMALS: no pedal edema Neuro: COMMON NORMALS: patient oriented x3 Psych: COMMON NORMALS: mental status grossly normal Urinary Catheter Management: 2-way Urethral: Cath Placed During This Visit: yes Reason for Continuing Indwelling Catheter: Acute Urinary Retention or Obstruction Urinary Catheter Date of Insertion: 11/02/21 Urinary Catheter Time of Insertion: 04:45 Discharge Data Studies Completed and Pending Completed Studies During Hospitalization Category Date Time Status CT chest abdomen pelvis [CT chest abd pel w con*] Stat Cat Scan 11/01/21 14:[address] head wo con* [id number] Urgent Cat Scan 11/01/21 11:24 Completed FL guided lumbarpunc dx* [id number] Stat Exams 11/02/21 13:00 Completed XR chest 1V portable [id number] Urgent Exams 11/01/21 11:24 Completed MR head wo con* [id number] Routine MRI 11/02/21 09:30 Completed Pending at discharge Category Date Time Status EEG electroencephalogram Stat Exams 11/01/21 17:42 Ordered Blood Culture Stat Lab 11/01/21 18:00 Results CMV IGG&IGM Panel Stat Lab 11/01/21 18:00 Received CSF Culture & Gram Stain Stat Lab 11/01/21 11:39 Results EBV IGG & IGM Stat Lab 11/01/21 18:00 Received EBV PCR [[place]assy Pina Virus QN PCR] Routine Lab 11/01/21 17:30 Received Herpes Simplex 1&2 IgG AB Routine Lab 11/02/21 10:51 Received Herpes Simplex Virus DNA Stat Lab 11/02/21 11:40 Received Lymes Disease Antibodies CSF Stat Lab 11/01/21 17:35 Received Miscellaneous Test Routine Lab 11/01/21 18:00 Received Sputum Culture and Gram Stain Stat Lab 11/01/21 17:30 Uncollected [facility].Virus IFA CSF Stat Lab 11/01/21 17:35 Received Urine Culture Stat Lab 11/01/21 14:22 Results VDRL on CSF Stat Lab 11/01/21 17:35 Received Radiology Impressions Chest X-Ray 11/01/21 11:24 IMPRESSION: Unremarkable chest radiograph. Chest/Abdomen/Pelvis CT 11/01/21 14:42 IMPRESSION: 1. No acute thoracic findings. 2. Small hiatal hernia. IMPRESSION: 1. Minimal short segment small bowel distension in the mid-lower abdomen. See discussion above. No acute bowel findings otherwise. 2. Mild splenomegaly. Head MRI 11/02/21 09:30 IMPRESSION: 1. Unremarkable noncontrast MRI brain. 2. No infarct or edema or hydrocephalus. Lumbar Puncture Fluoroscopy 11/02/21 13:00 IMPRESSION: Uncomplicated lumbar puncture for CSF. Laboratory Results WBC 8.5 10^3/uL (4.0-10.0) 11/04/21 05:20 RBC 4.66 10^6/uL (4.1-5.3) 11/04/21 05:20 Hgb 13.9 g/dL (11.7-16.6) 11/04/21 05:20 Hct 40.9 % (42.0-52.0) L 11/04/21 05:20 MCV 87.8 fl (80-94) 11/04/21 05:20 MCH 29.8 pg (28.0-34.0) 11/04/21 05:20 MCHC 34.0 g/dL (30.0-36.0) 11/04/21 05:20 RDW 11.9 % (12.1-15.1) L 11/04/21 05:20 Plt Count 197 10^3/cmm (130-400) 11/04/21 05:20 MPV 10.2 fL (7.4-10.4) 11/04/21 05:20 Neut % (Auto) 55.4 % 11/04/21 05:20 Lymph % (Auto) 30.4 % 11/04/21 05:20 [place] % (Auto) 9.6 % 11/04/21 05:20 Eos % (Auto) 3.4 % 11/04/21 05:20 Baso % (Auto) 0.7 % 11/04/21 05:20 Neut # (Auto) 4.73 10^3/uL (1.8-7.7) 11/04/21 05:20 Lymph # (Auto) 2.6 10^3/uL (0.8-4.8) 11/04/21 05:20 [place] # (Auto) 0.8 10^3/uL (0.2-0.9) 11/04/21 05:20 Eos # (Auto) 0.3 10^3/uL (0.0-0.8) 11/04/21 05:20 Baso # (Auto) 0.1 10^3/uL (0.0-0.1) 11/04/21 05:20 Nucleated RBC % (auto) 0 % 11/04/21 05:20 Nucleated RBCs # 0.0 /100WBC 11/04/21 05:20 ESR 11 mm/hr (0-10) H 11/01/21 11:22 Specimen Type Arterial 11/01/21 12:20 Sample Site Radial, left 11/01/21 12:20 ABG pH 7.40 (7.35-7.45) 11/01/21 12:20 ABG pCO2 39.7 mmHg (35-45) 11/01/21 12:20 ABG pO2 110.0 mmHg (80.0-100.0) H 11/01/21 12:20 ABG HCO3 24.4 mmol/L (22-26) 11/01/21 12:20 ABG Base Excess -0.4 mmol/L (-2.0-2.0) 11/01/21 12:20 Hiro Test Pos 11/01/21 12:20 Hematocrit 49.7 % (42-52) 11/01/21 12:20 O2 Delivery Device Nc 11/01/21 12:20 O2 Liters/Min 2.0 % 11/01/21 12:20 FiO2 28.0 % 11/01/21 12:20 Grinder Operator Automatic ID [place] 11/01/21 12:20 Sodium 141 mmol/L (136-145) 11/04/21 05:20 Potassium 3.6 mmol/L (3.5-5.1) 11/04/21 05:20 Chloride 109 mmol/L (98-107) H 11/04/21 05:20 Carbon Dioxide 21 mmol/L (22-29) L 11/04/21 05:20 Anion Gap 14.6 (5-19) 11/04/21 05:20 BUN 6 mg/dL (6-20) 11/04/21 05:20 Creatinine 1.0 mg/dL (0.7-1.2) 11/04/21 05:20 GFR Calculation 82.8 mL/min (90-130) L 11/04/21 05:20 Glucose 109 mg/dL (65-115) 11/04/21 05:20 POC Glucose 125 mg/dL (70-110) H 11/01/21 11:25 Calculated Osmolality 290 mOsm/kg (285-295) 11/04/21 05:20 Calcium 8.5 mg/dL (8.5-10.5) 11/04/21 05:20 Phosphorus 2.8 mg/dL (2.5-4.5) 11/04/21 05:20 Magnesium 1.8 mg/dL (1.7-2.3) 11/04/21 05:20 Ferritin 254 ng/mL (30-400) 11/01/21 18:00 Total Bilirubin 0.4 mg/dL (0.15-1.2) 11/04/21 05:20 AST 16 U/L (0-40) 11/04/21 05:20 ALT 16 U/L (0-41) 11/04/21 05:20 Alkaline Phosphatase 80 IU/L (40-130) 11/04/21 05:20 Ammonia 30 umol/L (16-60) 11/03/21 09:35 C-Reactive Protein 7.2 mg/L (0.0-4.9) H 11/01/21 18:00 NT-Pro-B Natriuret Pep 5 pg/mL (0-125) 11/01/21 11:22 Total Protein 5.9 g/dL (6.6-8.7) L 11/04/21 05:20 Albumin 3.7 g/dL (3.5-5.2) 11/04/21 05:20 Globulin 2.2 g/dL (1.3-4.6) 11/04/21 05:20 Lipase 18 U/L (13-60) 11/01/21 11:22 Procalcitonin 0.05 ng/mL (0-0.5) 11/01/21 18:00 TSH 0.89 uIU/mL (0.27-4.20) 11/01/21 18:00 Urine Color Yellow (Yellow) 11/01/21 14:22 Urine Appearance Clear (CLEAR) 11/01/21 14:22 Urine pH 7 (5-7) 11/01/21 14:22 Ur Specific [place] 1.005 (1.005-1.030) 11/01/21 14:22 Urine Protein Neg (Negative) 11/01/21 14:22 Urine Glucose (UA) Norm (Normal) 11/01/21 14:22 Urine Ketones Negative (Negative) 11/01/21 14:22 Urine Blood Neg (Negative) 11/01/21 14:22 Urine Nitrate Negative (Negative) 11/01/21 14:22 Urine Bilirubin Neg (Negative) 11/01/21 14:22 Urine Urobilinogen Norm mg/dL (Negative) 11/01/21 14:22 Ur Leukocyte Esterase Negative (Negative) 11/01/21 14:22 CSF Appearance Clear (CLEAR) 11/02/21 11:40 CSF Color Colorless (COLORLESS) 11/02/21 11:40 CSF Specific [place] 1.020 11/02/21 11:40 CSF WBC 2 /uL (0-5) 11/02/21 11:40 CSF RBC 0 10^3/uL (0-0) 11/02/21 11:40 CSF Mononuclear # Auto 0.002 10^3/uL (50-90) L 11/02/21 11:40 CSF Mononuclear WBCs % 100 % (50-90) H 11/02/21 11:40 CSF Polynuclear WBCs # 0.000 10^3/uL (0-10) 11/02/21 11:40 CSF Polynuclear WBCs % 0 % (0-10) 11/02/21 11:40 CSF Diff Comment Yes 11/02/21 11:40 CSF Glucose 68 mg/dL (40-70) 11/02/21 11:40 CSF Total Protein 38 mg/dL (15-45) 11/02/21 11:40 Vancomycin Trough 11.8 ug/mL (10-15) 11/04/21 05:20 Urine Opiates Screen Negative ng/mL (Negative) 11/01/21 14:22 Acetaminophen < 5.0 ug/mL (10-30) L 11/01/21 11:22 Ur Barbiturates Screen Negative ng/mL (Negative) 11/01/21 14:22 Ur Phencyclidine Scrn Negative ng/mL (Negative) 11/01/21 14:22 Ur Amphetamines Screen Negative ng/mL (Negative) 11/01/21 14:22 U Benzodiazepines Scrn Negative ng/mL (Negative) 11/01/21 14:22 Urine Cocaine Screen Negative ng/mL (Negative) 11/01/21 14:22 U Marijuana (THC) Screen Negative ng/mL (Negative) 11/01/21 14:22 Ethyl Alcohol < 10 mg/dL (0-10) 11/01/21 11:22 EBV Capsid Ag IgG, IgM Cancelled 11/01/21 18:00 Hepatitis A IgM Ab TNP 11/01/21 18:00 Hep Bs Antigen Non-reactive (Nonreactive) 11/01/21 18:00 Hep B Core IgM Ab Non-reactive (Nonreactive) 11/01/21 18:00 Hepatitis C Antibody Non-reactive (Nonreactive) 11/01/21 18:00 HIV 1&2 Ab & HIV 1 Ag Non-reactive (Non-Reactiv) 11/01/21 18:00 HIV 1&2 Antibody Non-reactive (Non-Reactiv) 11/01/21 18:00 Vitals Last Vital Signs Temp 97.8 F 11/04/21 07:03 Pulse 80 11/04/21 07:03 Resp 18 11/04/21 07:03 BP 126/80 11/04/21 07:03 Pulse Ox 96 11/04/21 07:03 Discharge Plan Discharge Patient Disposition: Home Condition: Stable Prescriptions: No Action No Known Home Medications 0RF Discharge Orders: Discharge Order (Routine); Ordered 11/04/21 Ordered By: Julián Mitchell Referrals: Niocle Crowe MD [Physician] - 7-10 days (Please give Dr. Crowe's office a call to schedule an appointment to be seen in7 to 10 days. Thank you) Srinath Castellon MD [Primary Care Provider] - Discharge Diet: Regular Discharge Activity: Resume usual activity Patient Instructions: Opioid Safety Activity Restrictions/Additional Instructions: - If you have any recurrent confusion, drowsiness, go to the emergency room -Follow-up with neurology in 1 week Discharge Attestations Time Spent in Discharge Care*: less than 30 min Status at Discharge: Cognitive status at discharge: cognitively intact , Behavioral status at discharge: cooperative and independent in ADL's , Quality Metrics Clinical Quality Measures [ No reported AMI, CVA or VTE this stay] Coding Level of Care Code Acute Chg FW DC note Diagnoses AMS (altered mental status) R41.82
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
[2021-11-05 11:37] LABS: HSV 2 IGG Type Specific AB <0.90 index
[2021-11-05 15:52] LABS: EBV IGM TEST <36.00 U/mL; EBV Nuclear AG >600.00 U/mL
[2021-11-06 17:07] LABS: Cytomegalovirus Antibody (IGG) >10.00 U/mL; Cytomegalovirus Antibody (IGM) <30.00 AU/mL
[2021-11-08 23:08] LABS: VDRL on CSF NON-REACTIVE
[2021-11-11 14:38] LABS: HSV 1 DNA NOT DETECTED; HSV 2 DNA NOT DETECTED; HSV Source CEREBROSPINAL FLUID
[2021-11-12 16:58] LABS: Epstein Barr Virus DNA PCR NOT DETECTED; Epstein Barr Virus DNA QN PCR NOT DETECTED copies/mL; Epstein Barr Virus Source CEREBROSPINAL FLUID
[2021-11-14 19:12] LABS: Lyme Disease AB (IGG),IBL NO BANDS DETECTED; Lyme Disease AB (IGM), IBL NO BANDS DETECTED
[2021-11-15 21:03] LABS: St. Louis Enceph.Virus IGG CSF <1:1; St. Louis Enceph.Virus IGM CSF <1:1
== END 2021-11-04 11:37 | disposition home or self-care (01) | DRG 71 ==
LOC: ER 17:57 → MEDSURG 11-02 08:32
PROVIDERS: Admitting Provider Family Medicine; Emergency Provider Emergency Medicine; PCP Family Medicine; Visit Provider Family Medicine
DX: G93.40 Encephalopathy, unspecified (principal); K92.0 Hematemesis; R41.82 Altered mental status, unspecified; F43.25 Adjustment disorder with mixed disturbance of emotions and conduct; G43.901 Migraine, unspecified, not intractable, with status migrainosus
CPT/HCPCS: 36415; 36416; 36600; 51701; 51702; 51798; 62328; 70450; 70551; 71045; 71260; 74177; 80053; 80074; 80202; 80306; 80307; 80503; 81003; 82140; 82728; 82803; 82945; 82962; 83690; 83735; 83880; 84100; 84145; 84157; 84315; 84443; 85025; 85651; 86140; 86592; 86617; 86653; 86664; 86665; 86695; 86696; 87040; 87070; 87075; 87086; 87205; 87530; 87798; 87806; 89050; 92523; 92610; 93005; 96365; 96367; 96368; 96375; 97161; 99285; G0378; J0133; J0696; J1953; J2405; J3370; J3490; J7030; Q9967

== ENCOUNTER 2022-06-19 10:35 | Emergency (ER) | payer BC, MEDICAID, SELFPAY ==
[2022-06-19 11:37] VITALS: BP 130/83; PULSE 112; RESP 16; TEMP 38.4; O2SAT 99; BMI 32.5
[2022-06-19 12:19] VITALS: BP 143/92; PULSE 103; RESP 17; O2SAT 99
[2022-06-19 14:16] VITALS: BP 103/61; PULSE 115; TEMP 39; O2SAT 94
--- NOTE | 2022-06-19 14:19 | PC.NURSE ---
field service specialist notified of elevated temp.
--- NOTE | 2022-06-19 15:38 | ED_ITS ---
HPI - Headache General: Chief Complaint: Altered Mental Status Stated Complaint: fever, headache, body aches Time Seen by Provider: 06/19/22 14:58 Source: patient Mode of arrival: ambulatory History of Present Illness: 41-year-old male presents emergency room with migraine. Patient has had migraines in the past he has an elevated temp has had a cough myalgias and headache. He has not had any diarrhea. Symptoms began yesterday worsened significantly overnight. Denies any medic easy melena hematemesis Nir is no dysuria urgency or frequency no real abdominal pain. MD elicited complaint: headache Onset (ago): hour(s) Onset description: gradually Location: frontal Severity: moderate Quality & Timing: throbbing Exacerbating factors: light and noise Relieving factors: rest Associated symptoms: Reports cough, fever(s), malaise, nausea and photophobia; Deny chest pain, confusion, diaphoresis, eye pain, eye redness, lightheadedness, loss of vision, neck stiffness, numbness, paresthesias, pre-syncope, rash, seizures, short of breath, sound sensitivity, syncope, vomiting or weakness Review of Systems Const: Reports: fever(s), chills, fatigue and malaise; Denies: diaphoresis ENMT: Denies: throat pain, ear or mastoid pain, nasal discharge or nasal congestion Card: Denies: chest pain, lightheadedness, syncope or pre-syncope Resp: Denies: dyspnea, productive cough or non-productive cough GI: Reports: nausea; Denies: abdominal pain or vomiting : Denies: flank pain, dysuria, urinary frequency or urinary urgency Skin/Breast: Denies: rash Neuro: Reports: headache(s); Denies: confusion PFSH ED PFSH: Medical History Contusion, arm, upper Headache -Admits to prior migraine headache history, not currently on any medications -Imaging negative including CT head -Pain control as needed No pertinent past medical history Sore throat -Imaging including CT neck negative -Strep A screen negative; anti-streptolysin antibody wnl -Resolved leukocytosis, afebrile, hemodynamically stable -on amoxicillin prophylactically -COVID-19 negative Surgical History History of appendectomy Hx of cholecystectomy Family History Grandmother No problems noted. Mother Cancer Leukemia, in remission Social History Smoking and tobacco status: never smoked Alcohol intake: never Lives independently: Yes Household members: spouse Housing: House Physical Exam Const: COMMON NORMALS: no acute distress GENERAL APPEARANCE: cooperative and comfortable ORIENTATION/CONSCIOUSNESS: Yes awake, Yes oriented to person, Yes oriented to place and Yes oriented to time HENMT: COMMON NORMALS: normocephalic, atraumatic, hearing grossly normal bilaterally, external ears normal, EAC's normal, TM's normal bilaterally and Normal nasal mucous membranes and turbinates present HEAD & SCALP: n ormocephalic and atraumatic NOSE: Normal nasal mucous membranes and turbi nates present EXTERNAL EAR: Yes external ears normal EXTERNAL AUDITORY CANAL: EAC's normal TYMPANIC MEMBRANE: TM's normal bilaterally Eye: COMMON NORMALS: Equal, round and reactive pupils present, EOMs intact bilaterally, conjunctivae normal and no scleral icterus CONJUNCTIVA: Yes conjunctivae normal PUPIL: Yes Equal, round and reactive pupils present DIRECT OPHTHALMOSCOPY: Yes photophobia Neck/C-Spine: COMMON NORMALS: full ROM, no lymphadenopathy, supple and no JVD Lymph: LYMPHATIC: no lymphadenopathy noted and no lymphedema noted Resp: COMMON NORMALS: normal respiratory effort, No retractions, No use of accessory muscles and clear to auscultation bilaterally AUSCULTATION: clear to auscultation bilaterally Cardio: COMMON NORMALS: no JVD, regular rate, regular rhythm and No murmurs present (Cardio) RATE: regular rate RHYTHM: regular rhythm GI: COMMON NORMALS: Soft to palpation and No hepatosplenomegaly present AUSCULTATION: Yes normoactive bowel sounds PALPATION: Yes Soft to palpation, No Tenderness to palpation present (GI), No Guarding due to palpation present (GI) and Yes No hepatosplenomegaly present Extremity: COMMON NORMALS: normal to inspection, capillary refill normal, no clubbing, cyanosis or edema, no calf tenderness and no pedal edema Neuro: SENSORIUM/ORIENTATION: Yes oriented to person, Yes oriented to place and Yes oriented to time Skin: COMMON NORMALS: no rashes or lesions noted GENERAL SKIN EXAM: no rashes or lesions noted Course Vital Signs: Vital signs: Vital Signs Temperature 102.2 F H 06/19/22 17:58 Pulse Rate 85 06/19/22 17:58 Respiratory Rate 18 06/19/22 17:58 Blood Pressure 134/74 06/19/22 17:58 Pulse Oximetry 96 06/19/22 17:58 Oxygen Delivery Me thod 06/19/22 14:16 MDM - Headache Medical Decision Making Influenza A. Recommend supportive cares Tylenol and ibuprofen. Follow-up as needed Medical Records I reviewed the patient's medical records. Lab Data I reviewed the patient's lab results. 06/19/22 15:15 06/19/22 15:15 Radiology Impressions Chest X-Ray 06/19/22 15:42 IMPRESSION: Unremarkable frontal portable chest x-ray. Laboratory Results WBC 8.8 10^3/uL (4.0-10.0) 06/19/22 15:15 RBC 5.16 10^6/uL (4.1-5.3) 06/19/22 15:15 Hgb 15.1 g/dL (11.7-16.6) 06/19/22 15:15 Hct 44.9 % (42.0-52.0) 06/19/22 15:15 MCV 87.0 fl (80-94) 06/19/22 15:15 MCH 29.3 pg (28.0-34.0) 06/19/22 15:15 MCHC 33.6 g/dL (30.0-36.0) 06/19/22 15:15 RDW 12.3 % (12.1-15.1) 06/19/22 15:15 Plt Count 188 10^3/cmm (130-400) 06/19/22 15:15 MPV 10.7 fL (7.4-10.4) H 06/19/22 15:15 Neut % (Auto) 73.2 % 06/19/22 15:15 Lymph % (Auto) 7.8 % 06/19/22 15:15 [place] % (Auto) 17.7 % 06/19/22 15:15 Eos % (Auto) 0.7 % 06/19/22 15:15 Baso % (Auto) 0.3 % 06/19/22 15:15 Neut # (Auto) 6.42 10^3/uL (1.8-7.7) 06/19/22 15:15 Lymph # (Auto) 0.7 10^3/uL (0.8-4.8) L 06/19/22 15:15 [place] # (Auto) 1.6 10^3/uL (0.2-0.9) H 06/19/22 15:15 Eos # (Auto) 0.1 10^3/uL (0.0-0.8) 06/19/22 15:15 Baso # (Auto) 0.0 10^3/uL (0.0-0.1) 06/19/22 15:15 Nucleated RBC % (auto) 0 % 06/19/22 15:15 Nucleated RBCs # 0.0 /100WBC 06/19/22 15:15 Sodium 135 mmol/L (136-145) L 06/19/22 15:15 Potassium 3.6 mmol/L (3.5-5.1) 06/19/22 15:15 Chloride 103 mmol/L (98-107) 06/19/22 15:15 Carbon Dioxide 20 mmol/L (22-29) L 06/19/22 15:15 Anion Gap 15.6 (5-19) 06/19/22 15:15 BUN 12 mg/dL (6-20) 06/19/22 15:15 Creatinine 1.0 mg/dL (0.7-1.2) 06/19/22 15:15 GFR Calculation 82.8 mL/min (90-130) L 06/19/22 15:15 Glucose 102 mg/dL (65-115) 06/19/22 15:15 Calculated Osmolality 280 mOsm/kg (285-295) L 06/19/22 15:15 Calcium 9.5 mg/dL (8.5-10.5) 06/19/22 15:15 Influenza Type A Ag positive (Negative) H 06/19/22 Unknown Influenza Type B Ag negative (Negative) 06/19/22 Unknown Discharge Plan Discharge Patient Disposition: Home Clinical Impression: Influenza A Condition: Stable Prescriptions: No Action topiramate 100 mg tablet 100 mg PO .DAILY HS Discharge Orders: Discharge ED (Routine); Ordered 06/19/22 Ordered By: Tyler Young Referrals: Srinath Castellon MD [Primary Care Provider] - Discharge Diet: Usual diet Discharge Activity: Resume usual activity Patient Instructions: Opioid Safety, Pain Management Activity Restrictions/Additional Instructions: You were seen today for headache fever and cough. Your symptoms are classic for influenza which you did also test positive for. This is likely to exaggerate your headaches at times and is typical for influenza. Use your usual remedies for headache as well as Tylenol and ibuprofen for fever. You can use [id number] cough and cold medications. You are also given a prescription for Tamiflu 75 mg 1 p.o. twice daily for 5 days. Tamiflu does not cure influenza it only suppresses it at most expected 1 day last total of symptoms compared to patients who do not take the Tamiflu. Coding Level of Care Code ED Continuous Improvement Director for Derrick Michaels
--- NOTE | 2022-06-19 15:42 | XR_ITS ---
WS: [id number] EXAMINATION: XR chest 1V portable [id number] REASON FOR EXAM: dyspnea/cough COMPARISON: None available. ORDER DATE: 06/19/2022 3:42 PM TECHNIQUE: A single, portable frontal chest x-ray was obtained. X-RAY FINDINGS: The lungs are clear. Pleural spaces are clear. No pleural effusions or pneumothorax. Cardiomediastinal silhouette is normal. No evidence for pulmonary edema. Soft tissue and osseous structures are unremarkable. No tubes or lines are present. XR/XR chest 1V portable [id number] IMPRESSION: Unremarkable frontal portable chest x-ray.
[2022-06-19 15:49] LABS: Basophils % 0.3 %; Eosinophils # 0.1 10^3/uL (0.0-0.8); Eosinophils % 0.7 %; Hematocrit 44.9 % (42.0-52.0); Hemoglobin 15.1 g/dL (11.7-16.6); Lymphocytes # 0.7 10^3/uL (0.8-4.8); Lymphocytes % 7.8 %; Mean Corpuscular HGB Conc 33.6 g/dL (30.0-36.0); Mean Corpuscular Hemoglobin 29.3 pg (28.0-34.0); Mean Platelet Volume 10.7 fL (7.4-10.4); Monocytes # 1.6 10^3/uL (0.2-0.9); Monocytes % 17.7 %; Neutrophils # 6.42 10^3/uL (1.8-7.7); Neutrophils % 73.2 %; Nucleated Red Blood Cells % 0 %; Platelet Count 188 10^3/cmm (130-400); Red Blood Count 5.16 10^6/uL (4.1-5.3); Red Cell Distribution Width 12.3 % (12.1-15.1); White Blood Count 8.8 10^3/uL (4.0-10.0)
[2022-06-19] MEDS: sodium chloride 0.9% 1,000 ML 999 ML IV (15:57)
[2022-06-19] MEDS: promethazine 25 mg/mL SDV 1 mL IM (15:58)
[2022-06-19] MEDS: ketorolac 30 mg/mL INJ IVP (15:58)
[2022-06-19] MEDS: acetaminophen 1,000 MG/100 ML PIGGYBACK 400 MG IV (15:59)
[2022-06-19 16:13] VITALS: BP 138/65; RESP 18; O2SAT 96
[2022-06-19 16:17] LABS: Anion Gap 15.6 (5-19); Blood Urea Nitrogen 12 mg/dL (6-20); Calcium 9.5 mg/dL (8.5-10.5); Carbon Dioxide 20 mmol/L (22-29); Chloride 103 mmol/L (98-107); Glomerular Filtration Rate 82.8 mL/min (90-130); Glucose 102 mg/dL (65-115); Osmolality Calculated 280 mOsm/kg (285-295); Potassium 3.6 mmol/L (3.5-5.1); Sodium 135 mmol/L (136-145)
[2022-06-19 16:55] LABS: Influenza A by IFA positive (Negative); Influenza B by IFA negative (Negative)
[2022-06-19 16:58] VITALS: BP 134/74; PULSE 85; RESP 18; O2SAT 96
[2022-06-19 17:58] VITALS: BP 134/74; PULSE 85; RESP 18; TEMP 39; O2SAT 96
== END 2022-06-19 17:50 | disposition home or self-care (01) ==
PROVIDERS: Emergency Provider Family Medicine; PCP Family Medicine
DX: J10.1 Influenza due to other identified influenza virus with other respiratory manifestations (principal)
CPT/HCPCS: 71045; 80048; 85025; 87804; 96361; 96372; 96374; 96375; 99284; J0131; J1885; J2550; J7030

== ENCOUNTER → 2022-06-26 11:04 | Day surgery (SDC) | payer BC, MEDICAID, SELFPAY ==
[2022-06-26 11:24] VITALS: BP 136/85; PULSE 90; RESP 18; TEMP 36.6; O2SAT 99
[2022-06-26] MEDS: ondansetron 2 mg/ML SDV 2 mL 4 MG IVP (11:29)
[2022-06-26] MEDS: diphenhydrAMINE 50 mg/mL SDV 1mL 25 MG IVP (11:31)
[2022-06-26] MEDS: dihydroergotamine 1 mg/mL Inj IVP ×6 (11:46→13:08)
--- NOTE | 2022-06-26 12:25 | PC.NURSE ---
Pt to Gi infusions for DHE protocol due to migraine. Pt initial pain score 7. Tolerated Benadryl and Zofran without difficulty. Pt has had total of 1.5 mg DHE so far. Headache pain now at 6. Denies N/V. Will continue to follow protocol and monitor.
--- NOTE | 2022-06-26 13:15 | PC.NURSE ---
Total dose of 3 mg DHE given per protocol. Pt started with headache pain of 7. Pain now at 5. Pt denies N/V.
[2022-06-26] MEDS: ketorolac 30 mg/mL INJ IVP (13:17)
--- NOTE | 2022-06-26 13:28 | PC.NURSE ---
Toradol 30 mg IVP per DHE protocol. Pt now states pain is a 4. States migraine pain is improved and tolerable.
== END ==
PROVIDERS: PCP Family Medicine; Visit Provider Specialist
DX: G43.711 Chronic migraine without aura, intractable, with status migrainosus (principal)
CPT/HCPCS: 96374; 96375; J1110; J1200; J1885; J2405

== ENCOUNTER 2025-06-09 09:12 | Emergency (ER) | payer BC, MEDICAID, SELFPAY ==
[2025-06-09 09:15] VITALS: BP 141/100; PULSE 81; RESP 17; TEMP 36.6; O2SAT 99; BMI 34.7
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
--- OUTSIDE RECORDS SUMMARY | 2025-06-09 09:19 | XMS_ITS | Data Portability ---
Author Organization [facility] Ryan Saavedra, [facility] Address [address] [facility] [address] [place] [address] Care Team Providers Care Reshipping Clerk Name Role Phone RALPH PAULINO Primary Care Provider [phone] Assessment No assessment recorded. Plan of Treatment Reminders Order Date Submit Date Provider Last Modified By Organization Details Last Modified Time Details Appointments None recorded. Lab None recorded. Referral None recorded. Procedures None recorded. Surgeries None recorded. Imaging None recorded. Medication Orders Cipro 500 mg tablet 2023 [facility], [address], [place], [address], 15:10:58 metronidazo le 500 mg tablet 2023 [facility], [address], [place], [address], 15:11:00 Patient TargetsNo targets recorded. Patient InstructionsNo instructions recorded. Reason for Referral None Reported. Procedures Surgical History Date Name Laterality Status Provider Name and Address Organization Details Recorded Time exploration procedure completed Jovita lomax [facility] Ryan Saavedra 03/17/2024 15:00:04 Imaging Results None recorded. Procedure Notes None recorded. Medical Equipment None Reported. Allergies No known drug allergies Medications Name Sig Start Date Stop Date Status Note LastModified by Organization Details LastModified Time metronidazole 500 mg tablet TAKE 1 TABLET BY MOUTH EVERY 8 HOURS FOR 7 DAYS active Not Available Not Available No t Available ciprofloxacin 500 mg tablet TAKE 1 TABLET BY MOUTH EVERY 12 HOURS FOR 7 DAYS active Not Available Not Available No t Available Vitals Date Recorded Body height Body mass index (BMI) Body weight Oxygen saturation Heart rate Respiratory rate Body temperature Systolic And Diastolic Provider Name and Address Organization Details Last Updated DateTime 4 173.99 cm 34.8 kg/m2 935304. 87 g 99 % 108 /min 17 /min 99.3 [degF] 184/104 mm[Hg] Jovita Idania [facility] 15:03:51 Social History Question Answer Notes LastModified by [employer] Details LastModified Time Tobacco Smoking Status Never Smoker Jovita Idania [facility], [facility] 03/17/2024 14:59:54 What Was The Date Of Your Most Recent Tobacco Screening? 03/17/2024 Information not available 03/17/2024 Sex: Unknown Functional Status Question Answer Note LastModified by [employer] Details LastModified Time Do you use any illicit or recreational drugs? No Information not available 03/17/2024 What is your level of alcohol consumption? None Information not available 03/17/2024 Mental Status None recorded. Family History Nothing Reported Notes:Leukemia Medical History Condition Response Coronary Artery Disease N Other N Gout N Kidney Stones N Blood Diseases N Hyperthyroidism N Breast Cancer N Blood Transfusion N Depression N Hypothyroidism N Lung Disease N COPD N Defects or Inherited Disease N Developmental or Behavioral Disorders N Breast Problem N Difficulty Swallowing N Anesthesia Complications N Meniere's disease N Anxiety Disorder N Muscle, Joint, or Bone Problems N Vision or Eye Problems N Arthritis N Polyps N Infertility N Cancer N Varicosities N Stroke N Endometriosis N Bladder or Kidney Problems N High Cholesterol N Liver Disease N Fibromyalgia N Headaches Y Kidney Disease N Allergies/Hayfever N Heart Problems N Ear or Hearing Problems N Hospitalizations N Thyroid Problems N GI Problems N ADD/ADHD N Skin Problems N Eating Disorder N Anemia N Constipation N Mental Illness N Ovarian Cancer N Diabetes N Bedwetting N Seizures/Epilepsy N Tuberculosis N Eczema N Diverticulitis N Abuse/Domestic Violence N Asthma N Reflux/GERD N Hepatitis N Heart Disease N Pulmonary Embolism N Pre-Eclampsia N Hypertension N Chronic Ear Infections N Osteoporosis N Chicken Pox N Autism Spectrum Disorder (ASD) N Thrombophilias N Immunizations Vaccine Type Date Status Note Provider Nam e and Address Organization Details Recorded Time HepB recombinant, 3-antigen, [place])3 03/16/2019 completed Not Available [facility] 3 02:27:45 Past Encounters Encounter ID Performer Location Encounter Start Date Encounter Closed Date Diagnosis/Indication Diagnosis SNOMED-CT Code Diagnosis ICD10 Code Diagnosis IMO Codes Diagnosis Note [id number] REYMUNDO ROQUE [facility] ([facility] [address] [place] [address] 03/17/2024 14:52:06 03/20/2024 08:36:24 Abdominal pain 15660667 R10.9 Will start on cipro and metro for broad spectrum coverage. If pt develops fever, bloody stools, increased pain, or vomiting he is to f/u in ER for imaging Health Concerns Section Related Observation LastModified by Organization Detai ls LastModified Time None Recorded Concern Status LastModified by Organization Details LastModified Time None Recorded Advance Directives Directive None Recorded Payers Insurance Date Sequence Insurance Name Policy Number Policy Hernandez Covered Member ID Hernandez Member ID Guarantor Name 01/19/2025 1 [place] - [place]PO) [id number] Abebe Simeon [id number] Abebe Simeon 01/19/2025 1 [employer] [place]MED[place]AC[place] - HMO) [id number] Abebe Simeon [id number] Abebe Simeon Notes Date Note Type Note Provider Name and Address Organization Details Recorded Time 03/17/2024 text/html ROS as noted in the HPI Pt reports pain starting yesterday morning. States he has bowel movements and can eat. Pain is located on the left lower side of abdomen. Denies constipation, vomiting or diarrhea. Has some nausea related to the pain. REYMUNDO ROQUE [address] [place], [address], [facility] 03/19/2024 10:41:50
[2025-06-09] MEDS: tetanus-dipt-pertussis 0.5 mL SDV IM (09:36)
[2025-06-09 09:42] VITALS: BP 109/69; PULSE 61; O2SAT 98
== END 2025-06-09 09:43 | disposition home or self-care (01) ==
PROVIDERS: Emergency Provider Emergency Medicine; PCP Family Medicine
DX: S61.012A Laceration without foreign body of left thumb without damage to nail, initial encounter (principal); W26.0XXA Contact with knife, initial encounter
CPT/HCPCS: 13131; 90471; 90715; 99283; J9999